=== PATIENT | female | born 1960 | race Caucasian/White ===

== ENCOUNTER → 2021-04-26 10:37 | Outpatient (BNVA) | payer OTHER, SELFPAY | PROVIDERS: Visit Provider Psychiatry & Neurology Neurology | DX: G43.709 Chronic migraine without aura, not intractable, without status migrainosus (principal); I10 Essential (primary) hypertension; D64.9 Anemia, unspecified; Z88.8 Allergy status to other drugs, medicaments and biological substances; F32.A Depression, unspecified | CPT/HCPCS: 64615; 99211; J0585 ==

== ENCOUNTER → 2021-08-01 08:07 | Outpatient (BNVA) | payer OTHER, SELFPAY | PROVIDERS: Visit Provider Psychiatry & Neurology Neurology | DX: G43.709 Chronic migraine without aura, not intractable, without status migrainosus (principal) | CPT/HCPCS: 64615; 99211; J0585 ==

== ENCOUNTER → 2021-11-24 09:44 | Outpatient (BNVA) | payer OTHER, SELFPAY | PROVIDERS: Visit Provider Psychiatry & Neurology Neurology | DX: G43.709 Chronic migraine without aura, not intractable, without status migrainosus (principal) | CPT/HCPCS: 64615; 99211; J0585 ==

== ENCOUNTER → 2022-03-02 08:25 | Outpatient (BNVA) | payer OTHER, SELFPAY | PROVIDERS: Visit Provider Psychiatry & Neurology Neurology | DX: G43.709 Chronic migraine without aura, not intractable, without status migrainosus (principal); I10 Essential (primary) hypertension | CPT/HCPCS: 64615; 99211; J0585 ==

== ENCOUNTER → 2022-06-12 11:21 | Outpatient (BNVA) | payer OTHER, SELFPAY | PROVIDERS: PCP Internal Medicine; Visit Provider Psychiatry & Neurology Neurology | DX: G43.709 Chronic migraine without aura, not intractable, without status migrainosus (principal) | CPT/HCPCS: 64615; 99211; J0585 ==

== ENCOUNTER 2022-09-27 11:30 | Outpatient (AMB) | payer OTHER, SELFPAY ==
--- NOTE | 2022-09-27 11:32 | MHC.OFFVIS ---
Intake Vital Signs 09/27/22 11:33 Height 5 ft 3 in Weight 192 lb 8 oz BMI 34.1 BP 120/82 Blood Pressure Location Rt brachial Position Sitting Intake Visit Reasons: Botox (B&B)-confirmed Intake Note: Patient presents for botox injection. Allergies prochlorperazine [From Compazine] Allergy (Severe, Verified 09/27/22 11:35) Shortness of Breath fluoxetine [From Prozac] Allergy (Mild, Verified 09/27/22 11:35) Nausea and Vomiting lithium Allergy (Mild, Verified 09/27/22 11:35) Unknown divalproex sodium [From Depakote] Allergy (Unknown, Verified 09/27/22 11:35) Unknown Medication List - Last Reconciled 09/27/22 by Ese Ray MD acetaminophen 500 mg PO Q6H PRN bupropion HCl (Wellbutrin XL) 300 mg PO QAM bupropion HCl (Wellbutrin SR) 150 mg PO Q12H cholecalciferol (vitamin D3) 50 mcg PO DAILY clonazepam (Klonopin) 0.5 mg PO BID escitalopram oxalate (Lexapro) 25 mg PO BEDTIME gabapentin 400 mg PO TID ibuprofen 0 mg PO lamotrigine (Lamictal) 100 mg PO BID magnesium 400 mg PO BEDTIME onabotulinumtoxinA (Botox) 200 units IM .every 3 months oxycodone 5 mg PO Q6H PRN sumatriptan succinate 100 mg PO Q2-4H PRN 30 days HPI HPI Comments History of Present Illness Details ? 62y/o female comes for treatment of her migraines with BOTOX. ??? Most frequent reported adverse reactions following injection of botox for chronic migraine include neck pain (9%), headache(5%), eyelid ptosis(4%), migraine(4%), muscular weakness(4%), musculuskeletal stiffness(4%), bronchitis(3%), injection site pain (3%), musculoskeletal pain(3%), myalgia(3%), facial paresis(2%), HTN(2%) and muscle spasms(2%) were discussed in detail. ??? Botulinum toxin typeA 200units Lot no [id number] expiration 03/2025 was diluted with 4 cc of normal saline in each vial. ??? Muscles injected- ??? Frontalis 4 sites ??? Procerus 1 site ??? Microstrategy Architect Developer- 2 sites ??? Temporalis- 8 sites ??? Occipitalis- 6 sites ??? Cervical paraspinals- 4 sites ??? Trapezius-10 units 6 sites zygomaticus major 5units each ??? 5 units each in 33 site ??? Total use- 195units ??? Discarded-5units PFSH Medical History Anemia Chronic migraine without aura Depression HTN (hypertension) Surgical History H/O: hysterectomy Hx of bilateral breast reduction surgery Hx of removal of cyst Family History Mother Cancer Father HTN (hypertension) Diabetes Social History Household Members: None Alcohol intake: never Patient Tobacco Use Status: Never used Tobacco Physical Exam Vital Signs: Last Vital Signs BP 120/82 09/27/22 11:33 BMI result Body Mass Index 34.1 Const General: cooperative and healthy appearing Orientation/consciousness: patient oriented x3 Neuro General: patient oriented x3, gait normal, tone normal and moves all extremities Cranial nerves: Yes CN's II-XII intact bilaterally Cognition (Neuro): normal cognition Office Procedures Botulinum toxin Injection 07287 - Migraine Procedure code (CPT) selection complete Office Meds onabotulinumtoxinA Performing Provider: Ese Ray MD Administered by: Ese Ray MD on 09/27/22 13:51 Dose Route Admin Location Lot Number Expiration Date [facility] Asbestos Removal Supervisor 200 unit subcut [id number] 03/28/25 3836-6063-32 ALLERGAN/BOTOX Comments: see hpi Assessment & Plan Assessment & Plan (1) Chronic migraine without aura: Code(s): G43.709 - Chronic migraine without aura, not intractable, without status migrainosus (2) Migraine with aura, intractable, without status migrainosus: Code(s): G43.119 - Migraine with aura, intractable, without status migrainosus Plan Patient tolerated the procedure well she will call with any side effects Orders: Orders AMB Botulinum toxin Injection Today G43.709 - Chronic migraine without aura, not intractable, without status migrainosus Coding Level of Care Code Est Pt Level 1 (61121) Diagnoses Chronic migraine without aura G43.709 Migraine with aura, intractable, without status migrainosus G43.119 CPT Codes Botox Injection - Botox 3: 95714 - Migraine ([id number])
[2022-09-27 11:33] VITALS: BP 120/82; BMI 34.1
== END 2022-09-27 12:02 | disposition home or self-care (01) ==
PROVIDERS: PCP Internal Medicine; Visit Provider Psychiatry & Neurology Neurology
DX: G43.709 Chronic migraine without aura, not intractable, without status migrainosus (principal); G43.119 Migraine with aura, intractable, without status migrainosus
CPT/HCPCS: 64615

== ENCOUNTER → 2022-09-27 11:30 | Outpatient (BNVA) | payer OTHER, SELFPAY | PROVIDERS: PCP Internal Medicine; Visit Provider Psychiatry & Neurology Neurology | DX: G43.709 Chronic migraine without aura, not intractable, without status migrainosus (principal); G43.119 Migraine with aura, intractable, without status migrainosus | CPT/HCPCS: 64615; 99211; J0585 ==

== ENCOUNTER 2023-01-03 08:57 | Outpatient (AMB) | payer OTHER, SELFPAY ==
--- NOTE | 2023-01-03 09:15 | MHC.OFFVIS ---
Intake Vital Signs 01/03/23 09:16 Height 5 ft 3 in Weight 198 lb 8 oz BMI 35.2 BP 140/78 H Blood Pressure Location Rt brachial Position Sitting Respiration 16 Pulse Source Pulse Oximeter Pulse Oximetry (%) 97 Oxygen Delivery Method Room Air Intake Visit Reasons: Botox (B&B)/Lvm Intake Note: Pt presents to the office for Botox injections. Corporate Communications Intern Required: No Allergies prochlorperazine [From Compazine] Allergy (Severe, Verified 01/03/23 09:15) Shortness of Breath fluoxetine [From Prozac] Allergy (Mild, Verified 01/03/23 09:15) Nausea and Vomiting lithium Allergy (Mild, Verified 01/03/23 09:15) Unknown divalproex sodium [From Depakote] Allergy (Unknown, Verified 01/03/23 09:15) Unknown Medication List - Last Reconciled 01/03/23 by Ese Ray MD acetaminophen 500 mg PO Q6H PRN bupropion HCl (Wellbutrin XL) 300 mg PO QAM bupropion HCl (Wellbutrin SR) 150 mg PO Q12H cholecalciferol (vitamin D3) 50 mcg PO DAILY clonazepam (Klonopin) 0.5 mg PO BID escitalopram oxalate (Lexapro) 25 mg PO BEDTIME gabapentin 400 mg PO TID ibuprofen 0 mg PO lamotrigine (Lamictal) 100 mg PO BID magnesium 400 mg PO BEDTIME onabotulinumtoxinA (Botox) 200 units IM .every 3 months oxycodone 5 mg PO Q6H PRN sumatriptan succinate 100 mg PO Q2-4H PRN 30 days HPI HPI Comments History of Present Illness Details ? 62y/o female comes for treatment of her migraines with BOTOX. ??? Most frequent reported adverse reactions following injection of botox for chronic migraine include neck pain (9%), headache(5%), eyelid ptosis(4%), migraine(4%), muscular weakness(4%), musculuskeletal stiffness(4%), bronchitis(3%), injection site pain (3%), musculoskeletal pain(3%), myalgia(3%), facial paresis(2%), HTN(2%) and muscle spasms(2%) were discussed in detail. ??? Botulinum toxin typeA 200units Lot no [id number] expiration 03/2025 was diluted with 4 cc of normal saline in each vial. ??? Muscles injected- ??? Frontalis 4 sites ??? Procerus 1 site ??? Research Executive- 2 sites ??? Temporalis- 8 sites ??? Occipitalis- 6 sites ??? Cervical paraspinals- 4 sites ??? Trapezius-10 units 6 sites zygomaticus major 5units each ??? 5 units each in 33 site ??? Total use- 195units ??? Discarded-5units [facility] Medical History Anemia Depression Chronic migraine without aura HTN (hypertension) Surgical History Hx of bilateral breast reduction surgery Hx of removal of cyst H/O: hysterectomy Family History Mother Cancer Father HTN (hypertension) Diabetes Social History Household Members: None Alcohol intake: never Patient Tobacco Use Status: Never used Tobacco Physical Exam Vital Signs: Last Vital Signs Resp 16 01/03/23 09:16 BP 140/78 H 01/03/23 09:16 Pulse Ox 97 01/03/23 09:16 Oxygen Delivery Method Room Air 01/03/23 09:16 BMI result Body Mass Index 35.2 Const General: cooperative and healthy appearing Orientation/consciousness: patient oriented x3 Neuro General: patient oriented x3, gait normal, tone normal and moves all extremities Cranial nerves: Yes CN's II-XII intact bilaterally Cognition (Neuro): normal cognition Office Procedures Botulinum toxin Injection 62431 - Migraine Procedure code (CPT) selection complete Office Meds onabotulinumtoxinA 200 unit solution for injection Performing Provider: Ese Ray MD Performing Location: [facility] [place] [facility] Administered by: Ese Ray MD on 01/03/23 09:54 Dose Route Admin Location Dispensed Lot Number Expiration Date [facility] Tray Packer 185 unit subcut 200 units [id number] 03/28/25 4414-2858-87 ALLERGAN/BOTOX Comments: see hpi Assessment & Plan Assessment & Plan (1) Chronic migraine without aura: Code(s): G43.709 - Chronic migraine without aura, not intractable, without status migrainosus (2) Migraine with aura, intractable, without status migrainosus: Code(s): G43.119 - Migraine with aura, intractable, without status migrainosus Plan Patient tolerated the procedure well she will call with any side effects Orders: Orders AMB Botulinum toxin Injection Today G43.709 - Chronic migraine without aura, not intractable, without status migrainosus Coding Level of Care Code Est Pt Level 1 (09768) Diagnoses Chronic migraine without aura G43.709 Migraine with aura, intractable, without status migrainosus G43.119 CPT Codes Botox Injection - Botox 3: 31454 - Migraine ([id number])
[2023-01-03 09:16] VITALS: BP 140/78; RESP 16; O2SAT 97; BMI 35.2
== END 2023-01-03 09:54 | disposition home or self-care (01) ==
PROVIDERS: PCP Internal Medicine; Visit Provider Psychiatry & Neurology Neurology
DX: G43.709 Chronic migraine without aura, not intractable, without status migrainosus (principal)
CPT/HCPCS: 64615

== ENCOUNTER → 2023-01-03 08:57 | Outpatient (BNVA) | payer OTHER, SELFPAY | PROVIDERS: PCP Internal Medicine; Visit Provider Psychiatry & Neurology Neurology | DX: G43.709 Chronic migraine without aura, not intractable, without status migrainosus (principal); G43.119 Migraine with aura, intractable, without status migrainosus | CPT/HCPCS: 64615; 99211; J0585 ==

== ENCOUNTER 2023-03-27 08:21 | Outpatient (REF) | payer OTHER, SELFPAY ==
[2023-03-27 08:41] LABS: MANUAL DIFF FLAG NO
[2023-03-27 08:59] LABS: Basophils Percent Auto 0.6 % (0-2); Eosinophils Absolute Auto 0.1 X10*3/uL (0.0-0.4); Hemoglobin 13.7 g/dl (12.0-16.0); Imm Gran Abs Auto 0.02 X10*3/uL (0.00-0.03); Imm Gran Pct Auto 0.3 % (0.0-0.4); Lymphocytes Absolute Auto 2.1 X10*3/uL (1.2-4.9); Mean Corpuscular HGB Conc 32.6 g/dl (31.0-35.0); Mean Corpuscular Hemoglobin 30.2 pg (27.0-33.0); Mean Corpuscular Volume 92.7 fL (80.0-98.0); Mean Platelet Volume 10.6 fL (9.4-12.3); Monocytes Absolute Auto 0.5 X10*3/uL (0.1-1.2); Monocytes Percent Auto 8.3 % (2-11); Neutrophils Absolute Auto 3.6 x10*3/uL (2.0-8.3); Neutrophils Percent Auto 55.8 % (45-73); Platelet Count 329 X10*3/uL (160-400); Red Blood Count 4.53 X10*6/uL (4.20-5.50); Red Cell Distribution Width 14.4 % (11.0-16.0); White Blood Count 6.4 X10*3/uL (4.8-10.8)
[2023-03-27 09:35] LABS: Estimated Average Glucose 108 mg/dL; Hemoglobin A1c % 5.4 % (<6.0)
[2023-03-27 10:03] LABS: Alanine Aminotransferase 32 U/L (0-31); Albumin Level 3.9 g/dL (3.5-5.0); Alkaline Phosphatase 116 U/L (39-117); Anion Gap 12 (12-20); Aspartate Amino Transferase 21 U/L (5-31); Bilirubin Total 0.4 mg/dL (0.0-1.0); Blood Urea Nitrogen 17 mg/dL (9-16); Calcium 9.3 mg/dL (8.4-10.2); Carbon Dioxide 28 mmol/L (22-29); Chloride 106 mmol/L (96-108); Cholesterol 270 mg/dL (<200); Estimated Glomerular Filt Rate 52; Glucose Fasting 110 mg/dL (60-99); HDL Cholesterol 48 mg/dL (>40); LDL Cholesterol Calculated 161 mg/dL (<100); Sodium 142 mmol/L (135-145); Total Protein 7.3 g/dL (6.5-8.0); Triglycerides 305 mg/dL (<150)
[2023-03-27 10:19] LABS: Free T4 (Free Thyroxine) 0.72 ng/dL (0.71-1.85); Thyroid Stimulating Hormone 2.55 uIU/mL (0.32-4.0); Vitamin D 25-OH Total 63.3 ng/mL (>30)
[2023-03-27 10:38] LABS: Vitamin B12 464 pg/mL (200-900)
== END 2023-03-27 08:22 | disposition home or self-care (01) ==
LOC: HO.LAB 08:21
PROVIDERS: PCP Internal Medicine; Visit Provider Psychiatry & Neurology Psychiatry
DX: F33.2 Major depressive disorder, recurrent severe without psychotic features (principal); F41.1 Generalized anxiety disorder
CPT/HCPCS: 36415; 80053; 80061; 82306; 82607; 83036; 84439; 84443; 85025

== ENCOUNTER → 2023-03-29 13:45 | Outpatient (BNV) | payer OTHER, SELFPAY | PROVIDERS: Visit Provider Psychiatry & Neurology Psychiatry | DX: F31.30 Bipolar disorder, current episode depressed, mild or moderate severity, unspecified (principal); F41.1 Generalized anxiety disorder | CPT/HCPCS: 90792; 99213 ==

== ENCOUNTER 2023-04-05 13:45 | Outpatient (RCR) | payer OTHER, SELFPAY ==
[2023-03-22 10:43] VITALS: BP 142/98; PULSE 68; TEMP 36.8
[2023-03-22 10:45] VITALS: BMI 32.9
--- NOTE | 2023-03-22 11:25 | PC.ADMIT ---
Patient is a 62 year old female who was referred to [facility] by crisis after talking to a therapist that was covering for her current therapist who has been on FMLA since January 2023. Patient stated she called crisis d/t increased depression and was having thoughts to shoot herself with a gun or hang herself. 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 She denied having any access to guns as guns are locked up at her brothers house. Patient denied SI at present. She stated, I got beyond that after I talked to Crisis . She stated her therapist is on FMLA and has been gone since the middle of January. She (her therapist) gave me the number to crisis and I used it . Patient stated, I'm trying to stay out of the hospital . Reports plans for the weekend include going over to her partner Arthur's house after program today, Saturday going over to her partners house all day, and Saturday having her friend Adolph over to watch the football game. She was given a copy of her safety plan if needed with the crisis numbers. Patient is alert and oriented x4. Calm and cooperative. Denied SI. She presented with anxious mood and affect. Medications reconciled with patient and patient's pharmacy. She stated she is taking medications as prescribed.
--- NOTE | 2023-03-22 21:48 | HO.PS.ADMBH ---
HPI Date of Service: 03/22/23 Chief Complaint: depression,SI Sources of Information: patient interviewed, chart reviewed and crisis/core team assessment reviewed HPI Narrative: Patient is a 62 year old female with history of Bipolar disorder, who was referred to PHP after presenting to Crisis with complaints of depression and wanting to kill myself . She reports that precipitant was because I lost my therapist . She said she was already struggling with her mood since the holidays which is usually a difficult time of the year for her, since losing her father last February. She shares that she was having thoughts of how to hang herself and says that she was talking to my (late) parents...I miss them. She says presently she is doing better, she is still depressed but is enthusiastic about starting the program and says that she generally benefits from therapeutic supports. She engages in a weekly depression group in the community at [facility]. She denies any current AH or VH, but reportedly has a history of hallucinations in the past. Past Psychiatric History: IP hospitalizations x3 including [facility] in 06/2021 PHP x1: at [facility] in 2019 No detox admissions Denies hx of suicide attempts or SIB Denies aggressive behavior Hx of EDB remotely PCP: Dr. Copeland Psych provider: Bambi Evans Therapist: currently on leave CURRENT MEDICATIONS: WEllbutrin XL 450 mg qAM gabapentin 400 mg QAM gabapentin 1000 mg QHS Lexapro 25 mg qd Latuda 40 mg qd Klonopin 0.5 mg TID Magnesium 400 mg qd Vitamin D3 2000 mg qd vitamins PMFSH Medical History (Updated 04/03/23 @ 23:07 by Emily Ramírez MD) Leaky heart valve Anemia Depression Chronic migraine without aura HTN (hypertension) Surgical History (Updated 03/22/23 @ 10:42 by Kenna Blackwood RN) History of cholecystectomy History of appendectomy Hx of bilateral breast reduction surgery Hx of removal of cyst H/O: hysterectomy Family History: Bipolar, addiction Social History: Lives alone , many years ago. No children, hx of stillborn child in 1997 Primary supports are her siblings, she is 2nd of 5 children. Mother in 2014, father in 2022 Graduated HS and attended college at [employer] for [employer], [employer] for Interview [employer] Substance History: Patient denies any history of alcohol or substance use Trauma History: Per assessment, reported trauma with loss of child (stillborn) in 1997. Loss of marriage after 44 years Diagnostics Vital Signs (24Hr): Vital Signs - 24 hr 03/22/23 10:43 Temperature 98.2 F Pulse Rate 68 Blood Pressure 142/98 H BMI result Body Mass Index 32.9 Meds/Allergies Meds Home Medications Medication Instructions Recorded Confirmed Type clonazepam 0.5 mg tablet (Klonopin) 0.5 mg PO BID 06/12/22 03/22/23 History magnesium 200 mg tablet 400 mg PO DAILY 06/12/22 03/22/23 History bupropion HCl 150 mg 24 hr tablet, 150 mg PO QAM 03/22/23 03/22/23 History extended release (Wellbutrin XL) bupropion HCl 300 mg 24 hr tablet, 300 mg PO QAM 03/22/23 03/22/23 History extended release (Wellbutrin XL) cholecalciferol (vitamin D3) 50 50 mcg PO DAILY 03/22/23 03/22/23 History mcg (2,000 unit) capsule (Vitamin D3) escitalopram oxalate 20 mg tablet 20 mg PO BEDTIME 03/22/23 03/22/23 History (Lexapro) escitalopram oxalate 5 mg tablet 5 mg PO DAILY 03/22/23 03/22/23 History (Lexapro) gabapentin 300 mg capsule 600 mg PO BEDTIME 03/22/23 03/22/23 History gabapentin 400 mg capsule 400 mg PO BID 03/22/23 03/22/23 History multivitamin 1 tab PO DAILY 03/22/23 03/22/23 History Allergies Allergies Allergy/AdvReac Type Severity Reaction Status Date / Time prochlorperazine Allergy Severe Shortness Verified 01/03/23 09:15 [From Compazine] of Breath fluoxetine [From Prozac] Allergy Mild Nausea and Verified 01/03/23 09:15 Vomiting lithium Allergy Mild Unknown Verified 01/03/23 09:15 divalproex sodium Allergy Unknown Unknown Verified 01/03/23 09:15 [From Depakote] peanut Allergy throat Verified 03/22/23 10:40 tightens seafood Allergy tongue Verified 03/22/23 10:40 tingles raisin AdvReac Migraine Uncoded 03/22/23 11:29 Mental Status Exam Mental Status Exam Narrative: Alert, oriented, in no acute distress. Calm, cooperative, engaged. No psychomotor agitation or neurovegetative retardation. Eye contact maintained. Mood anxious, depressed, affect variable.. Speech normal. Thought process linear, coherent. Thought content related to stressors, transient hopelessness and transient SI without suicidal intent or plan. Denies aggressive ideation or HI. No paranoia or delusional content elicited. No evidence of psychosis. Insight and judgment fair but adequate. Assessment & Plan Assessment & Plan (1) Bipolar affect, depressed: Status: Acute Code(s): F31.30 - Bipolar disorder, current episode depressed, mild or moderate severity, unspecified (2) Generalized anxiety disorder: Status: Acute Code(s): F41.1 - Generalized anxiety disorder Plan Admit to PHP continue with regular medications does not need any refills at this time will check routine lab work continue to monitor as per protocol Patient educated on: diagnosis and medication risk/benefits Informed Consent: understands Certification I certify that partial hospital treatment is medically necessary due to the symptoms and problems resulting from the patient's mental illness and the failure to treat the patient at the partial hospital level of care would likely result in the patient requiring inpatient psychiatric care which could not be prevented at a less intensive level of care. Time Spent With Patient Time: Total time managing care of this patient today __60__ minutes.
--- NOTE | 2023-03-28 15:05 | HO.PHP ---
Client's case has been opened and reviewed in treatment team.
[2023-03-29 09:35] VITALS: BP 144/80; PULSE 76
--- NOTE | 2023-03-29 23:58 | P.PNPSP_ITS ---
Subjective Subjective Date of Service: 03/29/23 Reason For Visit: depression,SI Interim History: Patient seen for follow-up. NO acute issues or complaints. She reports she is finally getting enough sleep. Mood is pretty good , depression improving, she has found groups helpful with managing anxiety and stressors. She finds the substance abuse groups do not pertain to her but says she pays attention to gain information in case I ever know someone who has these struggles . She indicates she came to the program to better manage her own emotional struggles. Has had SI in the past, and says she has experienced these kind of intrusive thoughts before but has not had any SI in the past 1.5 weeks. She says she has been making more efforts to stay busy and I'm active . Has been more energetic and motivated and has been attending to her household, cleaning and keeping up with responsibiltiies and self care. She has one more week in the program. She also looks forward to returning to her weekly depression group in the community. We reviewed her recent lab work, she is noted to have dyslipidemia. She has not been taking her statin but reports having an upcoming PCP appointment in 3 weeks and plan to discuss this with her PCP. I also notice her last BP in the system was 148/98, she is not on any anti- hypertensive medications, however her WB was recently increased and may be contributing to further elevations in BP. We will have her see the nurse today to recheck her blood pressure and may consider bumping up the Latuda so that Wellbutrin can be decreased. Medication Compliance: Yes Side effects from medications: No Attending Groups: Yes Review of Systems Acute medical concerns: No Mental Status Exam Mental Status Exam Narrative: Alert, oriented, in no acute distress. Calm, cooperative, engaged. No psychomotor agitation or neurovegetative retardation. Eye contact maintained. Mood less depressed and anxious, affect brighter, variable.. Speech normal. Thought process linear, coherent. Thought content related to stressors, denies hopelessness or SI or HI. No paranoia or delusional content elicited. No evidence of psychosis. Insight and judgment fair-good. Diagnostics Vital Signs (24Hr): Vital Signs - 24 hr 03/29/23 09:35 Pulse Rate 76 Blood Pressure 144/80 H BMI result Body Mass Index 32.9 Assessment & Plan Assessment & Plan (1) Major depressive disorder without psychotic features: Status: Acute Code(s): F32.9 - Major depressive disorder, single episode, unspecified (2) Generalized anxiety disorder: Status: Acute Code(s): F41.1 - Generalized anxiety disorder Plan will see RN to recheck VS if BP remains high we may consider bumping up Latuda to 60 mg/d and decreasing Wellbutrin XL to 300 mg/d otherwise continue current medication regime recent lab work findings reviewed with patient continue to monitor Patient educated on: diagnosis and medication risk/benefits Informed Consent: understands Reason for contiued partial hosp. stay Substantial Risk for: inability to function and med/psych decompensation Certification I certify that partial hospital treatment is medically necessary due to the symptoms and problems resulting from the patient's mental illness and the failure to treat the patient at the partial hospital level of care would likely result in the patient requiring inpatient psychiatric care which could not be prevented at a less intensive level of care. Total time managing care of this patient today __30__ minutes. Discharge Plan Discharge Attending provider: Emily Ramírez Medications: Continued gabapentin 400 mg capsule 400 mg PO BID gabapentin 300 mg capsule 600 mg PO BEDTIME escitalopram oxalate [Lexapro] 20 mg tablet 20 mg PO BEDTIME bupropion HCl [Wellbutrin XL] 300 mg tablet extended release 24 hr 300 mg PO QAM bupropion HCl [Wellbutrin XL] 150 mg tablet extended release 24 hr 150 mg PO QAM escitalopram oxalate [Lexapro] 5 mg tablet 5 mg PO DAILY lurasidone 40 mg tablet 40 mg PO QPM Patient Comments: Patient to take every evening with a meal. clonazepam [Klonopin] 0.5 mg tablet 0.5 mg PO BID No Action multivitamin [Daily Vitamin] Tablet 1 tab PO DAILY cholecalciferol (vitamin D3) [Vitamin D3] 50 mcg (2,000 unit) Capsule 50 mcg PO DAILY magnesium 200 mg tablet 400 mg PO DAILY
--- NOTE | 2023-04-02 20:51 | P.PNPSP_ITS ---
Subjective Subjective Date of Service: 04/02/23 Reason For Visit: depression,SI Interim History: Patient reports that she is feeling good . She is not as tired as she was last week. Sleep is improving and she is sleeping for the most part . She has enjoyed her time here, has found the program helpful. SHe is excited about some mandelas (coloring pages) that one of the other patient found in the group room and says she gets a lot of satisfaction doing art projects and other activities that help her manage stress. She feels she benefits from different treatment modalities. Art is particularly helpful intervention, her depression groups regularly gives them drawing or coloring exercises to work on during the week. SHe plans to also look into the Anxiety group that will be starting .up soon at [facility]. They can do up to 8 weeks at a time, before they need to take some time away to allow other folks to participate. We discuss her blood pressures which have been running borderline high she says since the dose of Wellbutrin was increased to 300 mg XL. She is agreeable to dropping the dose, but not back to 150 mg as she is concerned her depression will return. Will order Sr formulation and start at 50 mg. She denies any issues with mood swings, irritability, AH or VH or other symptoms of verenice or psychosis. Most recent episode was depressed. WIll continue Latuda and other medications at current doses. Medication Compliance: Yes Side effects from medications: Yes (as noted) Attending Groups: Yes Review of Systems Acute medical concerns: No Diagnostics Vital Signs (24Hr): BMI result Body Mass Index 32.9 Assessment & Plan Assessment & Plan (1) Bipolar affect, depressed: Status: Acute Code(s): F31.30 - Bipolar disorder, current episode depressed, mild or moderate severity, unspecified (2) Generalized anxiety disorder: Status: Acute Code(s): F41.1 - Generalized anxiety disorder Plan lower dose of Wellbutrin xl from 450 mg to 300 mg start Wellbutrin sr 50 mg qAM continue lurasidone 40 mg continue other medications continue to monitor Patient educated on: diagnosis and medication risk/benefits Informed Consent: understands Reason for contiued partial hosp. stay Substantial Risk for: inability to function and med/psych decompensation Certification I certify that partial hospital treatment is medically necessary due to the symptoms and problems resulting from the patient's mental illness and the failure to treat the patient at the partial hospital level of care would likely result in the patient requiring inpatient psychiatric care which could not be prevented at a less intensive level of care. Total time managing care of this patient today _30___ minutes. Discharge Plan Discharge Attending provider: Emily Ramírez Medications: New bupropion HCl [Wellbutrin SR] 100 mg tablet sustained-release 12 hr 50 mg PO QAM 30 Days Qty: 15 0RF Continued gabapentin 400 mg capsule 400 mg PO BID gabapentin 300 mg capsule 600 mg PO BEDTIME escitalopram oxalate [Lexapro] 20 mg tablet 20 mg PO BEDTIME bupropion HCl [Wellbutrin XL] 300 mg tablet extended release 24 hr 300 mg PO QAM bupropion HCl [Wellbutrin XL] 150 mg tablet extended release 24 hr 150 mg PO QAM escitalopram oxalate [Lexapro] 5 mg tablet 5 mg PO DAILY lurasidone 40 mg tablet 40 mg PO QPM 30 Days Qty: 30 0RF clonazepam [Klonopin] 0.5 mg tablet 0.5 mg PO BID No Action multivitamin [Daily Vitamin] Tablet 1 tab PO DAILY cholecalciferol (vitamin D3) [Vitamin D3] 50 mcg (2,000 unit) Capsule 50 mcg PO DAILY magnesium 200 mg tablet 400 mg PO DAILY
--- NOTE | 2023-04-04 07:30 | HO.PHP ---
Mary spoke to PHP admin, Diandra, and informed her that she won't be in attendance to program today due to having a migraine and feeling as though she is coming down with a cold. Mary stated that she is safe and continue to stay in contact with her sister throughout the day. Mary will be in attendance to program tomorrow.
--- NOTE | 2023-04-05 15:25 | P.PNPSP_ITS ---
Subjective Subjective Date of Service: 04/05/23 Reason For Visit: depression,SI Interim History: Patient seen for follow-up, anticipating discharge at the end of program today.? Reports no acute issues or concerns. Medication compliant, medications well- tolerated. Denies any adverse effects.?She reports her weekend is full with plans. She was unable to fill the Wellbutrin SR but would still like the 50 mg dose in order to lower her dose from 450 mg XL as her blood pressure has been elevated since her outpatient provider increased the dose. She had been at 300 mg XL in the past and feels that would be too low. Will resend over 50 mg IR of Wellbutrin to pharmacy (originally preferred SR formulation). If she has any trouble tolerating the dose, will plan to return dose to 450 mg and follow up with outpatient provider in 2 weeks. Mood is good .? Denies any hopelessness or SI. Denies thoughts of harming self or others at this time. Denies any aggressive ideation or HI. Denies any paranoia or AH or VH. Sleep, appetite, energy stable. Denies any alcohol or substance use, plans to use, or cravings. Medication Compliance: Yes Side effects from medications: No Attending Groups: Yes Review of Systems Acute medical concerns: No Mental Status Exam Mental Status Exam Narrative: Alert, oriented, in no acute distress. Calm, cooperative, engaged. Eye contact maintained. Mood good, affect appropriate. Speech normal. Thought process linear, coherent. Thought content related to stressors, denies any helplessness, hopelessness or SI.? No aggressive ideation or HI. No paranoia or delusional content elicited. No evidence of psychosis. Insight and judgment impaired. Diagnostics Vital Signs (24Hr): BMI result Body Mass Index 32.9 Assessment & Plan Assessment & Plan (1) Bipolar affect, depressed: Status: Acute Code(s): F31.30 - Bipolar disorder, current episode depressed, mild or moderate severity, unspecified (2) Generalized anxiety disorder: Status: Acute Code(s): F41.1 - Generalized anxiety disorder Plan [facility]Ischarge from [facility] continue with plan to lower Wellbutrin to 350 mg (300 mg XL/50 mg IR) if not tolerated will return to 450 mg XL continue other regular medications will defer further medication management to outpatient provider Refills sent to pharmacy Patient educated on: diagnosis and medication risk/benefits Informed Consent: understands Reason for contiued partial hosp. stay Substantial Risk for: stable for discharge Certification I certify that partial hospital treatment is medically necessary due to the symptoms and problems resulting from the patient's mental illness and the failure to treat the patient at the partial hospital level of care would likely result in the patient requiring inpatient psychiatric care which could not be prevented at a less intensive level of care. Total time managing care of this patient today _30___ minutes. Discharge Plan Discharge Attending provider: Emily Ramírez Additional Instructions: Mary has an OP therapy appointment on April 09, 2023 at 4 PM through [facility]. Medications: New bupropion HCl 100 mg tablet 50 - 100 mg PO QAM Qty: 14 0RF Continued gabapentin 400 mg capsule 400 mg PO BID gabapentin 300 mg capsule 600 mg PO BEDTIME escitalopram oxalate [Lexapro] 20 mg tablet 20 mg PO BEDTIME bupropion HCl [Wellbutrin XL] 300 mg tablet extended release 24 hr 300 mg PO QAM bupropion HCl [Wellbutrin XL] 150 mg tablet extended release 24 hr 150 mg PO QAM escitalopram oxalate [Lexapro] 5 mg tablet 5 mg PO DAILY lurasidone 40 mg tablet 40 mg PO QPM 30 Days Qty: 30 0RF clonazepam [Klonopin] 0.5 mg tablet 0.5 mg PO BID No Action multivitamin [Daily Vitamin] Tablet 1 tab PO DAILY cholecalciferol (vitamin D3) [Vitamin D3] 50 mcg (2,000 unit) Capsule 50 mcg PO DAILY magnesium 200 mg tablet 400 mg PO DAILY Stand Alone Forms: Patient Portal Discharge page Patient Education: Bipolar Disorder (DC)
== END 2023-04-05 23:59 | disposition home or self-care (01) ==
LOC: HO.PHPA 13:45
PROVIDERS: Visit Provider Psychiatry & Neurology Psychiatry
DX: F31.30 Bipolar disorder, current episode depressed, mild or moderate severity, unspecified (principal); F41.1 Generalized anxiety disorder; Z79.899 Other long term (current) drug therapy
CPT/HCPCS: 90791; 90853

== ENCOUNTER 2023-04-26 08:25 | Outpatient (AMB) | payer OTHER, SELFPAY ==
--- NOTE | 2023-04-26 08:35 | MHC.OFFVIS ---
Intake Vital Signs 04/26/23 08:36 Respiration 17 Pulse 70 Pulse Source Pulse Oximeter Pulse Oximetry (%) 95 Oxygen Delivery Method Room Air Intake Visit Reasons: Botox (B&B)-Confirmed Intake Note: Pt presents to the office for Botox injections. Rn Gastroenterology Required: No Allergies prochlorperazine [From Compazine] Allergy (Severe, Verified 04/26/23 08:35) Shortness of Breath fluoxetine [From Prozac] Allergy (Mild, Verified 04/26/23 08:35) Nausea and Vomiting lithium Allergy (Mild, Verified 04/26/23 08:35) Unknown divalproex sodium [From Depakote] Allergy (Unknown, Verified 04/26/23 08:35) Unknown peanut Allergy (Verified 04/26/23 08:35) throat tightens seafood Allergy (Verified 04/26/23 08:35) tongue tingles raisin Adverse Reaction (Uncoded 04/26/23 08:35) Migraine Medication List - Last Reconciled 04/26/23 by Ese Ray MD bupropion HCl (Wellbutrin XL) 300 mg PO QAM bupropion HCl 50 - 100 mg (0.5 - 1 x 100 mg) PO QAM cholecalciferol (vitamin D3) (Vitamin D3) 50 mcg PO DAILY clonazepam (Klonopin) 0.5 mg PO BID escitalopram oxalate (Lexapro) 20 mg PO BEDTIME escitalopram oxalate (Lexapro) 5 mg PO DAILY gabapentin 600 mg PO BEDTIME gabapentin 400 mg PO BID lurasidone 40 mg PO QPM 30 days magnesium 400 mg PO DAILY multivitamin 1 tab PO DAILY HPI HPI Comments History of Present Illness Details ? 62y/o female comes for treatment of her migraines with BOTOX. she was admitted at [facility] for suicidal ideation. .How many migraine days prior to botox-20 How long do the migraines last-1-2 days Intensity of migraine- 12/04 ER visits related to [id number] Effectiveness of botox from last two treatment(s) How many migraine days since receiving treatment: 3-4 per month Change? in intensity of migraine?decreased Change in frequency of migraine?decreased Change in use of acute medication for migraine?decreased Change in quality of life?improved ER visits related to migraine?none Have at least three months elapsed since last treatment (Last botox date - frequency of injections)01/17 ??? Most frequent reported adverse reactions following injection of botox for chronic migraine include neck pain (9%), headache(5%), eyelid ptosis(4%), migraine(4%), muscular weakness(4%), musculuskeletal stiffness(4%), bronchitis(3%), injection site pain (3%), musculoskeletal pain(3%), myalgia(3%), facial paresis(2%), HTN(2%) and muscle spasms(2%) were discussed in detail. ??? Botulinum toxin typeA 200units Lot no [id number] expiration 07/2025 was diluted with 4 cc of normal saline in each vial. ??? Muscles injected- ??? Frontalis 4 sites ??? Procerus 1 site ??? Health Care Manager- 2 sites ??? Temporalis- 8 sites ??? Occipitalis- 6 sites ??? Cervical paraspinals- 4 sites ??? Trapezius-10 units 6 sites zygomaticus major 5units each ??? 5 units each in 33 site ??? Total use- 195units ??? Discarded-5units [facility] Medical History Sebaceous cyst Leaky heart valve Anemia Depression Chronic migraine without aura HTN (hypertension) Surgical History History of cholecystectomy History of appendectomy Hx of bilateral breast reduction surgery Hx of removal of cyst H/O: hysterectomy Family History Mother Cancer Father HTN (hypertension) Diabetes Social History Household Members: None Alcohol intake: never Patient Tobacco Use Status: Never used Tobacco Physical Exam Vital Signs: Last Vital Signs Pulse 70 04/26/23 08:36 Resp 17 04/26/23 08:36 Pulse Ox 95 04/26/23 08:36 Oxygen Delivery Method Room Air 04/26/23 08:36 Const General: cooperative and healthy appearing Orientation/consciousness: patient oriented x3 Neuro General: patient oriented x3, gait normal, tone normal and moves all extremities Cranial nerves: Yes CN's II-XII intact bilaterally Cognition (Neuro): normal cognition Office Procedures Botulinum toxin Injection 97312 - Migraine Procedure code (CPT) selection complete Office Meds onabotulinumtoxinA 200 unit solution for injection Performing Provider: Ese Ray MD [place] [facility] [place] [facility] Administered by: Ese Ray MD on 04/26/23 09:34 Dose Route Admin Location Dispensed Lot Number Expiration Date [facility] Outpatient Case Manager 195 unit subcut 200 units [id number] 07/26/25 7913-5710-99 ALLERGAN/BOTOX Comments: see HPI Assessment & Plan Assessment & Plan (1) Chronic migraine without aura: Code(s): G43.709 - Chronic migraine without aura, not intractable, without status migrainosus (2) Migraine with aura, intractable, without status migrainosus: Code(s): G43.119 - Migraine with aura, intractable, without status migrainosus Plan Patient tolerated the procedure well she will call with any side effects Orders: Orders AMB Botulinum toxin Injection Today G43.709 - Chronic migraine without aura, not intractable, without status migrainosus Coding Level of Care Code Est Pt Level 1 (09103) Diagnoses Chronic migraine without aura G43.709 Migraine with aura, intractable, without status migrainosus G43.119 CPT Codes Botox Injection - Botox 3: 30542 - Migraine ([id number])
[2023-04-26 08:36] VITALS: PULSE 70; RESP 17; O2SAT 95
== END 2023-04-26 09:23 | disposition home or self-care (01) ==
PROVIDERS: PCP Internal Medicine; Visit Provider Psychiatry & Neurology Neurology
DX: G43.119 Migraine with aura, intractable, without status migrainosus (principal)
CPT/HCPCS: 64615

== ENCOUNTER → 2023-04-26 08:25 | Outpatient (BNVA) | payer OTHER, SELFPAY | PROVIDERS: PCP Internal Medicine; Visit Provider Psychiatry & Neurology Neurology | DX: G43.709 Chronic migraine without aura, not intractable, without status migrainosus (principal); G43.119 Migraine with aura, intractable, without status migrainosus | CPT/HCPCS: 64615; 99211; J0585 ==

== ENCOUNTER 2023-08-01 08:40 | Outpatient (AMB) | payer OTHER, SELFPAY ==
--- NOTE | 2023-08-01 08:47 | MHC.OFFVIS ---
Vital Signs 08/01/23 08:48 Height 5 ft 3 in Weight 198 lb 2 oz BMI 35.1 BP 142/78 H Blood Pressure Location Rt brachial Position Sitting Respiration 17 Pulse 75 Pulse Source Pulse Oximeter Pulse Oximetry (%) 95 Oxygen Delivery Method Room Air Intake Visit Reasons: Botox (B&B) - Confirmed Intake Note: Pt presents to the office for Botox injections. Time Study Observer Required: No Allergies prochlorperazine [From Compazine] Allergy (Severe, Verified 08/01/23 08:47) Shortness of Breath fluoxetine [From Prozac] Allergy (Mild, Verified 08/01/23 08:47) Nausea and Vomiting lithium Allergy (Mild, Verified 08/01/23 08:47) Unknown divalproex sodium [From Depakote] Allergy (Unknown, Verified 08/01/23 08:47) Unknown peanut Allergy (Verified 08/01/23 08:47) throat tightens seafood Allergy (Verified 08/01/23 08:47) tongue tingles raisin Adverse Reaction (Uncoded 08/01/23 08:47) Migraine Medication List - Last Reconciled 08/01/23 by Ese Ray MD bupropion HCl 50 - 100 mg (0.5 - 1 x 100 mg) PO QAM bupropion HCl XL (Wellbutrin XL) 300 mg PO QAM cholecalciferol (vitamin D3) (Vitamin D3) 50 mcg PO DAILY clonazepam (Klonopin) 0.5 mg PO BID escitalopram oxalate (Lexapro) 20 mg PO BEDTIME escitalopram oxalate (Lexapro) 5 mg PO DAILY gabapentin 600 mg PO BEDTIME gabapentin 400 mg PO BID lurasidone 40 mg PO QPM 30 days magnesium 400 mg PO DAILY multivitamin 1 tab PO DAILY sumatriptan succinate take 1 tab at onset of headache; if no relief, may repeat 1 tab after at least 2 hrs; max = 2 tabs/24 hrs PO HPI Comments Details: ? 62y/o female comes for treatment of her migraines with BOTOX. .How many migraine days prior to botox-20 How long do the migraines last-1-2 days Intensity of migraine- 12/04 ER visits related to [id number] Effectiveness of botox from last two treatment(s) How many migraine days since receiving treatment: 3-4 per month Change? in intensity of migraine?decreased Change in frequency of migraine?decreased Change in use of acute medication for migraine?decreased Change in quality of life?improved ER visits related to migraine?none Have at least three months elapsed since last treatment -yes ??? Most frequent reported adverse reactions following injection of botox for chronic migraine include neck pain (9%), headache(5%), eyelid ptosis(4%), migraine(4%), muscular weakness(4%), musculuskeletal stiffness(4%), bronchitis(3%), injection site pain (3%), musculoskeletal pain(3%), myalgia(3%), facial paresis(2%), HTN(2%) and muscle spasms(2%) were discussed in detail. ??? Botulinum toxin typeA 200units Lot no [id number] expiration 07/2025 was diluted with 4 cc of normal saline in each vial. ??? Muscles injected- ??? Frontalis 4 sites ??? Procerus 1 site ??? Employment Interviewer- 2 sites ??? Temporalis- 8 sites ??? Occipitalis- 6 sites ??? Cervical paraspinals- 4 sites ??? Trapezius-10 units 6 sites zygomaticus major 5units each ??? 5 units each in 33 site ??? Total use- 195units ??? Discarded-5units [facility] Medical History Sebaceous cyst Leaky heart valve Anemia Depression Chronic migraine without aura HTN (hypertension) Surgical History History of cholecystectomy History of appendectomy Hx of bilateral breast reduction surgery Hx of removal of cyst H/O: hysterectomy Family History Mother Cancer Father HTN (hypertension) Diabetes Social History Household Members: None Alcohol intake: never Patient Tobacco Use Status: Never used Tobacco Physical Exam Const General: cooperative and healthy appearing Orientation/consciousness: patient oriented x3 Neuro General: patient oriented x3, gait normal, tone normal and moves all extremities Cranial nerves: Yes CN's II-XII intact bilaterally Cognition (Neuro): normal cognition Office Procedures Botulinum toxin Injection 96895 - Migraine Procedure code (CPT) selection complete Office Meds onabotulinumtoxinA 200 unit solution for injection Performing Provider: Ese Ray MD [place] [facility] [place] [facility] Administered by: Ese Ray MD on 08/01/23 09:19 Dose Route Admin Location Dispensed Lot Number Expiration Date [facility] Plant Maintenance Technician 195 unit subcut 200 units [id number] 07/26/25 9284-6141-90 ALLERGAN/BOTOX Comments: see hpi Assessment & Plan Assessment & Plan (1) Chronic migraine without aura: Code(s): G43.709 - Chronic migraine without aura, not intractable, without status migrainosus Category: Medical (2) Migraine with aura, intractable, without status migrainosus: Code(s): G43.119 - Migraine with aura, intractable, without status migrainosus Category: Medical Plan Patient tolerated the procedure well she will call with any side effects Orders: Orders AMB Botulinum toxin Injection Today G43.709 - Chronic migraine without aura, not intractable, without status migrainosus Medications: New onabotulinumtoxinA 200 units subcut ONCE 1 ea 0RF migraine G43.709 - Chronic migraine without aura, not intractable, without status migrainosus Coding Level of Care Code Est Pt Level 1 (36736) Diagnoses Chronic migraine without aura G43.709 Migraine with aura, intractable, without status migrainosus G43.119 CPT Codes Botox Injection - Botox 3: 12125 - Migraine ([id number])
[2023-08-01 08:48] VITALS: BP 142/78; PULSE 75; RESP 17; O2SAT 95; BMI 35.1
== END 2023-08-01 09:11 | disposition home or self-care (01) ==
PROVIDERS: PCP Internal Medicine; Visit Provider Psychiatry & Neurology Neurology
DX: G43.E19 Chronic migraine with aura, intractable, without status migrainosus (principal)
CPT/HCPCS: 64615

== ENCOUNTER → 2023-08-01 08:40 | Outpatient (BNVA) | payer OTHER, SELFPAY | PROVIDERS: PCP Internal Medicine; Visit Provider Psychiatry & Neurology Neurology | DX: G43.E09 Chronic migraine with aura, not intractable, without status migrainosus (principal) | CPT/HCPCS: 64615; 99211; J0585 ==

== ENCOUNTER 2023-11-04 09:26 | Outpatient (AMB) | payer OTHER, SELFPAY ==
--- NOTE | 2023-11-04 09:34 | A.OFFVIS_ITS ---
Vital Signs 11/04/23 09:35 Height 5 ft 3 in Weight 199 lb 2 oz BMI 35.3 BP 140/80 H Blood Pressure Location Rt brachial Position Sitting Respiration 17 Pulse 70 Pulse Source Pulse Oximeter Pulse Oximetry (%) 95 Oxygen Delivery Method Room Air Intake Visit Reasons: Botox Intake Note: Pt presents for Botox injections for chronic migraines. Process Improvement Analyst Required: No Allergies prochlorperazine [From Compazine] Allergy (Severe, Verified 11/04/23 09:34) Shortness of Breath fluoxetine [From Prozac] Allergy (Mild, Verified 11/04/23 09:34) Nausea and Vomiting lithium Allergy (Mild, Verified 11/04/23 09:34) Unknown divalproex sodium [From Depakote] Allergy (Unknown, Verified 11/04/23 09:34) Unknown peanut Allergy (Verified 11/04/23 09:34) throat tightens seafood Allergy (Verified 11/04/23 09:34) tongue tingles raisin Adverse Reaction (Uncoded 11/04/23 09:34) Migraine Medication List - Last Reconciled 11/04/23 by Ese Ray MD bupropion HCl 50 - 100 mg (0.5 - 1 x 100 mg) PO QAM bupropion HCl XL (Wellbutrin XL) 300 mg PO QAM cholecalciferol (vitamin D3) (Vitamin D3) 50 mcg PO DAILY clonazepam (Klonopin) 0.5 mg PO BID escitalopram oxalate (Lexapro) 20 mg PO BEDTIME escitalopram oxalate (Lexapro) 5 mg PO DAILY gabapentin 600 mg PO BEDTIME gabapentin 400 mg PO BID lurasidone 40 mg PO QPM 30 days magnesium 400 mg PO DAILY multivitamin 1 tab PO DAILY sumatriptan succinate take 1 tab at onset of headache; if no relief, may repeat 1 tab after at least 2 hrs; max = 2 tabs/24 hrs PO HPI Comments Details: ? 63y/o female comes for treatment of her migraines with BOTOX. .How many migraine days prior to botox-20 How long do the migraines last-1-2 days Intensity of migraine- 12/04 ER visits related to [id number] Effectiveness of botox from last two treatment(s) How many migraine days since receiving treatment: 3-4 per month Change? in intensity of migraine?decreased Change in frequency of migraine?decreased Change in use of acute medication for migraine?decreased Change in quality of life?improved ER visits related to migraine?none Have at least three months elapsed since last treatment -yes ??? Most frequent reported adverse reactions following injection of botox for chronic migraine include neck pain (9%), headache(5%), eyelid ptosis(4%), migraine(4%), muscular weakness(4%), musculuskeletal stiffness(4%), bronchitis(3%), injection site pain (3%), musculoskeletal pain(3%), myalgia(3%), facial paresis(2%), HTN(2%) and muscle spasms(2%) were discussed in detail. ??? Botulinum toxin typeA 200units Lot no [id number] expiration 01/2026 was diluted with 4 cc of normal saline in each vial. ??? Muscles injected- ??? Frontalis 4 sites ??? Procerus 1 site ??? Cafe Site Attendant- 2 sites ??? Temporalis- 8 sites ??? Occipitalis- 6 sites ??? Cervical paraspinals- 4 sites ??? Trapezius-10 units 6 sites zygomaticus major 5units each ??? 5 units each in 33 site ??? Total use- 195units ??? Discarded-5units ON LICENSE OF [facility] Medical History (Updated 11/04/23 @ 09:59 by Ese Ray MD) Chronic migraine without aura, intractable, without status migrainosus Sebaceous cyst Leaky heart valve Anemia Depression Chronic migraine without aura HTN (hypertension) Surgical History History of cholecystectomy History of appendectomy Hx of bilateral breast reduction surgery Hx of removal of cyst H/O: hysterectomy Family History Mother Cancer Father HTN (hypertension) Diabetes Social History Household Members: None Alcohol intake: never Patient Tobacco Use Status: Never used Tobacco Physical Exam Vital Signs: Last Vital Signs Pulse 70 11/04/23 09:35 Resp 17 11/04/23 09:35 BP 140/80 H 11/04/23 09:35 Pulse Ox 95 11/04/23 09:35 Oxygen Delivery Method Room Air 11/04/23 09:35 BMI result Body Mass Index 35.3 Const General: cooperative and healthy appearing Orientation/consciousness: patient oriented x3 Neuro General: patient oriented x3, gait normal, tone normal and moves all extremities Cranial nerves: Yes CN's II-XII intact bilaterally Cognition (Neuro): normal cognition Office Procedures Botulinum toxin Injection 30313 - Migraine Procedure code (CPT) selection complete Office Meds onabotulinumtoxinA 200 unit solution for injection Performing Provider: Ese Ray MD Performing Location: [facility] [place] [facility] Administered by: Ese Ray MD on 11/04/23 10:01 Dose Route Admin Location Dispensed Lot Number Expiration Date [facility] Building Trades Teacher 195 unit subcut 200 units [id number] 01/25/26 2998-4281-28 ALLERGAN/BOTOX Comments: see HPI Assessment & Plan Assessment & Plan (1) Chronic migraine without aura, intractable, without status migrainosus: Code(s): G43.719 - Chronic migraine without aura, intractable, without status migrainosus Category: Medical (2) Migraine with aura, intractable, without status migrainosus: Code(s): G43.119 - Migraine with aura, intractable, without status migrainosus Category: Medical Plan Patient tolerated the procedure well she will call with any side effects Orders: Orders AMB Botulinum toxin Injection Today G43.719 - Chronic migraine without aura, intractable, without status migrainosus Medications: New onabotulinumtoxinA 200 units subcut ONCE 1 ea 0RF migraine G43.719 - Chronic migraine without aura, intractable, without status migrainosus Coding Level of Care Code Est Pt Level 1 (19757) Diagnoses Chronic migraine without aura, intractable, without status migrainosus G43.719 Migraine with aura, intractable, without status migrainosus G43.119 CPT Codes Botox Injection - Botox 3: 16406 - Migraine ([id number])
[2023-11-04 09:35] VITALS: BP 140/80; PULSE 70; RESP 17; O2SAT 95; BMI 35.3
== END 2023-11-04 09:58 | disposition home or self-care (01) ==
PROVIDERS: PCP Internal Medicine; Visit Provider Psychiatry & Neurology Neurology
DX: G43.719 Chronic migraine without aura, intractable, without status migrainosus (principal)
CPT/HCPCS: 64615

== ENCOUNTER → 2023-11-04 09:26 | Outpatient (BNVA) | payer OTHER, SELFPAY | PROVIDERS: PCP Internal Medicine; Visit Provider Psychiatry & Neurology Neurology | DX: G43.E19 Chronic migraine with aura, intractable, without status migrainosus (principal) | CPT/HCPCS: 64615; 99211; J0585 ==

== ENCOUNTER 2024-03-10 08:43 | Outpatient (AMB) | payer MEDICAID, SELFPAY ==
[2024-03-10 08:56] VITALS: BMI 35.2
--- NOTE | 2024-03-10 08:56 | A.OFFVIS_ITS ---
Vital Signs 03/10/24 08:56 Height 5 ft 3 in Weight 199 lb BMI 35.2 Intake Visit Reasons: Botox Intake Note: Patient presents for botox injection Allergies prochlorperazine [From Compazine] Allergy (Severe, Verified 11/04/23 09:34) Shortness of Breath fluoxetine [From Prozac] Allergy (Mild, Verified 11/04/23 09:34) Nausea and Vomiting lithium Allergy (Mild, Verified 11/04/23 09:34) Unknown divalproex sodium [From Depakote] Allergy (Unknown, Verified 11/04/23 09:34) Unknown peanut Allergy (Verified 11/04/23 09:34) throat tightens seafood Allergy (Verified 11/04/23 09:34) tongue tingles raisin Adverse Reaction (Uncoded 11/04/23 09:34) Migraine Medication List - Last Reconciled 03/10/24 by Ese Ray MD bupropion HCl 50 - 100 mg (0.5 - 1 x 100 mg) PO QAM bupropion HCl XL (Wellbutrin XL) 300 mg PO QAM cholecalciferol (vitamin D3) (Vitamin D3) 50 mcg PO DAILY clonazepam (Klonopin) 0.5 mg PO BID escitalopram oxalate (Lexapro) 20 mg PO BEDTIME escitalopram oxalate (Lexapro) 5 mg PO DAILY gabapentin 600 mg PO BEDTIME gabapentin 400 mg PO BID lurasidone 40 mg PO QPM 30 days magnesium 400 mg PO DAILY multivitamin 1 tab PO DAILY sumatriptan succinate take 1 tab at onset of headache; if no relief, may repeat 1 tab after at least 2 hrs; max = 2 tabs/24 hrs PO HPI Comments Details: ? 63y/o female comes for treatment of her migraines with BOTOX. .How many migraine days prior to botox-20 How long do the migraines last-1-2 days Intensity of migraine- 10/10 ER visits related to eddquzhg-0-3 Effectiveness of botox from last two treatment(s) How many migraine days since receiving treatment: 3-4 per month Change? in intensity of migraine?decreased Change in frequency of migraine?decreased Change in use of acute medication for migraine?decreased Change in quality of life?improved ER visits related to migraine?none Have at least three months elapsed since last treatment -yes ??? Most frequent reported adverse reactions following injection of botox for chronic migraine include neck pain (9%), headache(5%), eyelid ptosis(4%), migraine(4%), muscular weakness(4%), musculuskeletal stiffness(4%), bronchitis(3%), injection site pain (3%), musculoskeletal pain(3%), myalgia(3%), facial paresis(2%), HTN(2%) and muscle spasms(2%) were discussed in detail. ??? Botulinum toxin typeA 200units Lot no [id number] expiration 04/2026 was diluted with 4 cc of normal saline in each vial. ??? Muscles injected- ??? Frontalis 4 sites ??? Procerus 1 site ??? Molded Goods Spot Picker- 2 sites ??? Temporalis- 8 sites ??? Occipitalis- 6 sites ??? Cervical paraspinals- 4 sites ??? Trapezius-10 units 6 sites zygomaticus major 5units each ??? 5 units each in 33 site ??? Total use- 195units ??? Discarded-5units [facility] Medical History Chronic migraine without aura, intractable, without status migrainosus Sebaceous cyst Leaky heart valve Anemia Depression Chronic migraine without aura HTN (hypertension) Surgical History History of cholecystectomy History of appendectomy Hx of bilateral breast reduction surgery Hx of removal of cyst H/O: hysterectomy Family History Mother Cancer Father HTN (hypertension) Diabetes Social History Household Members: None Alcohol intake: never Patient Tobacco Use Status: Never used Tobacco Physical Exam Vital Signs: BMI result Body Mass Index 35.2 Const General: cooperative and healthy appearing Orientation/consciousness: patient oriented x3 Neuro General: patient oriented x3, gait normal, tone normal and moves all extremities Cranial nerves: Yes CN's II-XII intact bilaterally Cognition (Neuro): normal cognition Office Procedures Botulinum toxin Injection 45987 - Migraine Procedure code (CPT) selection complete Office Meds onabotulinumtoxinA 200 unit solution for injection Performing Provider: Ese Ray MD Performing Location: [facility] Administered by: Ese Ray MD on 03/10/24 09:27 Dose Route Admin Location Dispensed Lot Number Expiration Date NDC Vice President Digital Strategist 195 unit IM 200 units [id number] 04/25/26 9123-0384-91 ALLERGAN/BOTOX Comments: see hpi Assessment & Plan Assessment & Plan (1) Chronic migraine without aura, intractable, without status migrainosus: Code(s): G43.719 - Chronic migraine without aura, intractable, without status migrainosus Category: Medical (2) Migraine with aura, intractable, without status migrainosus: Code(s): G43.119 - Migraine with aura, intractable, without status migrainosus Category: Medical Plan Patient tolerated the procedure well she will call with any side effects Orders: Orders AMB Botulinum toxin Injection Today G43.719 - Chronic migraine without aura, intractable, without status migrainosus Medications: New onabotulinumtoxinA 200 units IM ONCE 1 ea 0RF migraine G43.719 - Chronic migraine without aura, intractable, without status migrainosus Coding Level of Care Code Est Pt Level 1 (58014) Diagnoses Chronic migraine without aura, intractable, without status migrainosus G43.719 Migraine with aura, intractable, without status migrainosus G43.119 CPT Codes Botox Injection - Botox 3: 56680 - Migraine ([id number])
== END 2024-03-10 09:19 | disposition home or self-care (01) ==
PROVIDERS: PCP Internal Medicine; Visit Provider Psychiatry & Neurology Neurology
DX: G43.719 Chronic migraine without aura, intractable, without status migrainosus (principal)
CPT/HCPCS: 64615

== ENCOUNTER → 2024-03-10 08:43 | Outpatient (BNVA) | payer MEDICAID, SELFPAY | PROVIDERS: PCP Internal Medicine; Visit Provider Psychiatry & Neurology Neurology | DX: G43.719 Chronic migraine without aura, intractable, without status migrainosus (principal); G43.119 Migraine with aura, intractable, without status migrainosus | CPT/HCPCS: 64615; 99211; J0585 ==

== ENCOUNTER → 2024-06-09 10:13 | Outpatient (BNVA) | payer MEDICARE, MEDICAID, SELFPAY | PROVIDERS: PCP Internal Medicine; Visit Provider Surgery | DX: G43.719 Chronic migraine without aura, intractable, without status migrainosus (principal); G43.119 Migraine with aura, intractable, without status migrainosus | CPT/HCPCS: 64615; 99211; J0585 ==

== ENCOUNTER 2024-06-09 13:49 | Outpatient (AMB) | payer MEDICARE, MEDICAID, SELFPAY ==
--- NOTE | 2024-06-09 13:53 | A.OFFVIS_ITS ---
Intake Visit Reasons: Botox Intake Note: Patient presents for botox injection. pharmacy supplied Allergies prochlorperazine [From Compazine] Allergy (Severe, Verified 06/09/24 13:55) Shortness of Breath fluoxetine [From Prozac] Allergy (Mild, Verified 06/09/24 13:55) Nausea and Vomiting lithium Allergy (Mild, Verified 06/09/24 13:55) Unknown divalproex sodium [From Depakote] Allergy (Unknown, Verified 06/09/24 13:55) Unknown peanut Allergy (Verified 06/09/24 13:55) throat tightens seafood Allergy (Verified 06/09/24 13:55) tongue tingles NUTS Allergy (Mild, Uncoded 06/09/24 13:55) Unknown seafood Allergy (Mild, Uncoded 06/09/24 13:55) Unknown raisin Adverse Reaction (Uncoded 06/09/24 13:55) Migraine Medication List - Last Reconciled 06/09/24 by Ese Ray MD bupropion HCl XL (Wellbutrin XL) 300 mg PO QAM bupropion HCl XL 150 mg PO QAM cholecalciferol (vitamin D3) (Vitamin D3) 50 mcg PO DAILY clonazepam (Klonopin) 0.5 mg PO BID escitalopram oxalate (Lexapro) 20 mg PO BEDTIME escitalopram oxalate (Lexapro) 5 mg PO DAILY gabapentin 600 mg PO BEDTIME gabapentin 400 mg PO BID lurasidone 40 mg PO QPM 30 days magnesium chloride (Mag-Delay) 64 mg PO QPM multivitamin 1 tab PO DAILY sumatriptan succinate take 1 tab at onset of headache; if no relief, may repeat 1 tab after at least 2 hrs; max = 2 tabs/24 hrs PO HPI Comments Details: ? 63y/o female comes for treatment of her migraines with BOTOX. .How many migraine days prior to botox-20 How long do the migraines last-1-2 days Intensity of migraine- 12/04 ER visits related to aobdvygj-8-7 Effectiveness of botox from last two treatment(s) How many migraine days since receiving treatment: 3-4 per month Change? in intensity of migraine?decreased Change in frequency of migraine?decreased Change in use of acute medication for migraine?decreased Change in quality of life?improved ER visits related to migraine?none Have at least three months elapsed since last treatment -yes ??? Most frequent reported adverse reactions following injection of botox for chronic migraine include neck pain (9%), headache(5%), eyelid ptosis(4%), migraine(4%), muscular weakness(4%), musculuskeletal stiffness(4%), bronchitis(3%), injection site pain (3%), musculoskeletal pain(3%), myalgia(3%), facial paresis(2%), HTN(2%) and muscle spasms(2%) were discussed in detail. ??? Botulinum toxin typeA 200units Lot no [id number] expiration 05/2026 was dilu karyn with 4 cc of normal saline in each vial. ??? Muscles injected- ??? Frontalis 4 sites ??? Procerus 1 site ??? Brick Or Block Maker- 2 sites ??? Temporalis- 8 sites ??? Occipitalis- 6 sites ??? Cervical paraspinals- 4 sites ??? Trapezius-10 units 6 sites zygomaticus major 5units each ??? 5 units each in 33 site ??? Total use- 195units ??? Discarded-5units [facility] Medical History Chronic migraine without aura, intractable, without status migrainosus Sebaceous cyst Leaky heart valve Anemia Depression Chronic migraine without aura HTN (hypertension) Surgical History History of cholecystectomy History of appendectomy Hx of bilateral breast reduction surgery Hx of removal of cyst H/O: hysterectomy Family History Mother Cancer Father HTN (hypertension) Diabetes Paternal Uncle Depression Sister Bipolar 1 disorder Social History Household Members: None Alcohol intake: never Patient Tobacco Use Status: Never used Tobacco Physical Exam Const General: cooperative and healthy appearing Orientation/consciousness: patient oriented x3 Neuro General: patient oriented x3, gait normal, tone normal and moves all extremities Cranial nerves: Yes CN's II-XII intact bilaterally Cognition (Neuro): normal cognition Office Procedures Botulinum toxin Injection 89163 - Migraine Procedure code (CPT) selection complete Office Meds onabotulinumtoxinA 200 unit solution for injection Performing Provider: Ese Ray MD Performing Location: [facility] Administered by: Ese Ray MD on 06/09/24 15:04 Dose Route Admin Location Dispensed Lot Number Expiration Date NDC Earthmoving Plant Operator 195 unit subcut 200 units [id number] ALLERGAN/BOTOX Comments: see HPI Assessment & Plan Assessment & Plan (1) Chronic migraine without aura, intractable, without status migrainosus: Code(s): G43.719 - Chronic migraine without aura, intractable, without status migrainosus Category: Medical (2) Migraine with aura, intractable, without status migrainosus: Code(s): G43.119 - Migraine with aura, intractable, without status migrainosus Category: Medical Plan Patient tolerated the procedure well she will call with any side effects Orders: Orders AMB Botulinum toxin Injection Today G43.719 - Chronic migraine without aura, intractable, without status migrainosus Medications: New onabotulinumtoxinA 200 units subcut ONCE 1 ea 0RF migraine G43.719 - Chronic migraine without aura, intractable, without status migrainosus Coding Level of Care Code Est Pt Level 1 (04968) Diagnoses Chronic migraine without aura, intractable, without status migrainosus G43.719 Migraine with aura, intractable, without status migrainosus G43.119 CPT Codes Botox Injection - Botox 3: 10540 - Migraine ([id number])
--- OUTSIDE RECORDS SUMMARY | 2024-06-09 17:01 | XMS_ITS | Clinical Summary ---
Author Organization [facility] ity Address [address] [place] [address] Care Team Providers Care Lpn Rn Hospice Name Role Phone Michael Oneill MD Primary Care Provider Social History Tobacco Use Types Packs/Day Years Used Date Smoking Tobacco: Never Assessed Comments Unknown Sex and Gender Information Value Date Recorded Sex Assigned at Not on file Legal Sex Female 3:28 PM EST Gender Identity Not on file Sexual Orientation Not on file Plan of Treatment Health Maintenance Due Date Last Done Comments Breast Cancer Screening 1960 DTaP,Tdap,and Td Vaccines (1 - Tdap) 1977 Cervical Cancer Screening: P ap Smear 09/22/1979 Pneumococcal Vaccine: 50+ Ye ars (1 of 1 - PCV) 2008 Zoster Vaccines (1 of 2) 2008 Colorectal Cancer Screening: Colonoscopy 01/24/2022 Depression Screening 01/24/2022 Hepatitis C Screening 01/24/2022 Osteoporosis Screening (Bone Density Screening) 01/24/2022 Social Influencers of Health Screening 01/24/2022 Falls Risk Assessment 09/22/2023 COVID-19 Vaccine ( - 2023-2 5 season) 2023 Influenza Vaccine (Season Ended) 2024 RSV Immunization Adult Patie nts (1 - 1-dose 75+ series) 2033 HIB Vaccines Aged Out No longer eligi ble based on patient's age to complete this topic HPV Vaccines Aged Out No longer eligi ble based on patient's age to complete this topic Hepatitis A Vaccines Aged Out No long er eligible based on patient's age to complete this topic Hepatitis B Vaccines Aged Out No long er eligible based on patient's age to complete this topic IPV Vaccines Aged Out No longer eligi ble based on patient's age to complete this topic MMR Vaccines Aged Out No longer eligi ble based on patient's age to complete this topic Meningococcal ACWY Vaccine Aged Out N o longer eligible based on patient's age to complete this topic Meningococcal B Vaccine Aged Out No l onger eligible based on patient's age to complete this topic Pneumococcal Vaccine: Pediat rics (0 to 5 Years) and At-Risk Patients (6 to 64 Years) Aged Out No longer eligible b ased on patient's age to complete this topic RSV Immunization Patients Un richard 20 months Aged Out No longer eligible b ased on patient's age to complete this topic Varicella Vaccines Aged Out No longer eligible based on patient's age to complete this topic Care Teams Lpn Rn Hospice Relationship Specialty Start Date End Date Michael Oneill MD [address] [place] [address] [phone] PCP - General Internal Medicine 08/15/17
== END 2024-06-09 14:09 | disposition home or self-care (01) ==
LOC: HO.HSMS 13:49
PROVIDERS: PCP Internal Medicine; Visit Provider Psychiatry & Neurology Neurology
DX: G43.719 Chronic migraine without aura, intractable, without status migrainosus (principal)
CPT/HCPCS: 64615

== ENCOUNTER 2024-06-18 08:11 | Outpatient (AMB) | payer MEDICARE, MEDICAID, SELFPAY ==
--- OUTSIDE RECORDS SUMMARY | 2024-06-18 08:25 | XMS_ITS | Clinical Summary ---
Author Organization [facility] ity Address [address] [place] [address] Care Team Providers Care Linderman Operator Name Role Phone Michael Oneill MD Primary [...] age to complete this topic Care Teams Linderman Operator Relationship Specialty Start Date End Date Michael Oneill MD [address] [place] [address] [phone] PCP - General Internal Medicine 08/15/17
--- NOTE | 2024-06-18 09:04 | MHC.OFFVISWM ---
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 33.8 *SEE COMMENTS* Allergies prochlorperazine [From Compazine] Allergy (Severe, Verified 06/18/24 09:04) Shortness of Breath fluoxetine [From Prozac] Allergy (Mild, Verified 06/18/24 09:04) Nausea and Vomiting lithium Allergy (Mild, Verified 06/18/24 09:04) Unknown divalproex sodium [From Depakote] Allergy (Unknown, Verified 06/18/24 09:04) Unknown peanut Allergy (Verified 06/18/24 09:04) throat tightens seafood Allergy (Verified 06/18/24 09:04) tongue tingles NUTS Allergy (Mild, Uncoded 06/18/24 09:04) Unknown seafood Allergy (Mild, Uncoded 06/18/24 09:04) Unknown raisin Adverse Reaction (Uncoded 06/18/24 09:04) Migraine Medication List - Last Reconciled 06/18/24 by Hao Echeverria MD bupropion HCl XL (Wellbutrin XL) 300 mg PO QAM bupropion HCl XL 150 mg PO QAM cholecalciferol (vitamin D3) (Vitamin D3) 50 mcg PO DAILY clonazepam (Klonopin) 0.5 mg PO BID escitalopram oxalate (Lexapro) 20 mg PO BEDTIME escitalopram oxalate (Lexapro) 5 mg PO DAILY gabapentin 600 mg PO BEDTIME gabapentin 400 mg PO BID lurasidone 40 mg PO QPM 30 days magnesium chloride (Mag-Delay) 64 mg PO QPM multivitamin 1 tab PO DAILY sumatriptan succinate take 1 tab at onset of headache; if no relief, may repeat 1 tab after at least 2 hrs; max = 2 tabs/24 hrs PO HPI HPI 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 BMI 33.8 *SEE COMMENTS*: Details: Start time: 8.40am, End time: 9.30am ?I spent 45 minutes speaking with the patient on the phone plus an additional 5 minutes reviewing and updating records for a total of 50 minutes HPI Comments Details: Previous weight loss efforts: self diet and exercise last 6 months and lost 18lbs Wakes 7am, Sleeps: 11pm Breakfast: half days of the week 8.30am (toast) Lunch: 1pm (salad) Dinner: 6pm (chicken with potatoes, pasta with meatballs, burger) Snacks: 10am (candy or apples), occasionally at 3pm (same) Exercise: none, [facility] to [facility] (treadmill and bike available) Beverages: Coffee: none, tea: none, soda: regular coke (3 cans/day), juice: Cranberry juice, ETOH: none PFSH Medical History (Updated 06/18/24 @ 09:38 by Hao Echeverria MD) BMI 33.0-33.9,adult Chronic migraine without aura, intractable, without status migrainosus Sebaceous cyst Leaky heart valve Anemia Depression Chronic migraine without aura HTN (hypertension) Surgical History History of cholecystectomy History of appendectomy Hx of bilateral breast reduction surgery Hx of removal of cyst H/O: hysterectomy Family History Mother Cancer Father HTN (hypertension) Diabetes Paternal Uncle Depression Sister Bipolar 1 disorder Social History Household Members: None Alcohol intake: never Patient Tobacco Use Status: Never used Tobacco Telehealth Telehealth Telehealth Platform: Telephone Location of provider rendering services: practice address Location of patient: address on file Patient Identification confirmed using: Name, : Yes Telehealth method: voice only Patient verbally consented to treatment: Yes Patient verbally consented to billing insurance company: Yes Patient informed of any privacy concerns related to visit: Yes Minutes spent on Phone/Video with Pt.: 50 Assessment & Plan Assessment & Plan (1) Obesity: Code(s): E66.9 - Obesity, unspecified Category: Medical Qualifiers: Obesity type: due to excess calories Obesity classification: adult class 1 (BMI 30 - 34.9) Serious obesity comorbidity presence: without serious comorbidity Body mass index: BMI 33.0-33.9 Qualified Code(s): E66.811 - Obesity, class 1; E66.09 - Other obesity due to excess calories; Z68.33 - Body mass index [BMI] 33.0-33.9, adult Plan: 1. We discussed in detail the available therapeutic options: 1) our lifestyle intervention program that has an average weight loss of 10% in 3 months.? 2) Weight loss medications. 3) We also discussed about the lap sleeve gastrectomy. I emphasized the importance of close follow-up, adherence to instructions and good communication. The surgery does not replace the need to change your lifestlyle which is the cause of the obesity problem. The surgery provides the motivation to try again to change your lifestyle, it reduces the appetite and make the transition to a better lifestyle easier and doubles the amount of weight you would lose compared to doing the lifestyle change without the surgery. You will need to be on a liquid diet with protein shakes for 2 weeks before surgery to maximize weight loss and boost your nutritional status to recover better from surgery and also for the first two weeks after surgery to let the stomach heal before we introduce other foods. After the first 2 weeks we will introduce protein bars and soft foods like scrambled eggs, cottage cheese and yogurt and after the 6th week will introduce meat, fish and cooked vegetables in small amounts. Over time you should be able to eat everything in small amounts. Side effects like nausea, vomiting, heartburn or abdominal pain are not common in the practice unless you are not following in the practice. This operation requires lifetime commitment to following in our practice and communication with me. You will much less weight and experience side effects if you don?t communicate or not following in the practice. Complications are rare and in our practice is about 1/10 of the national average. The patient will consider these options and get back to me with her decision how to proceed.
[2024-06-18 09:35] VITALS: BMI 33.7
== END 2024-06-18 09:42 | disposition home or self-care (01) ==
LOC: HO.HBS 08:11
PROVIDERS: PCP Internal Medicine; Visit Provider Surgery
DX: E66.09 Other obesity due to excess calories (principal); E66.811 Obesity, class 1; Z68.33 Body mass index [BMI] 33.0-33.9, adult
CPT/HCPCS: 99204

== ENCOUNTER → 2024-06-18 08:11 | Outpatient (BNVA) | payer MEDICARE, MEDICAID, SELFPAY | PROVIDERS: PCP Internal Medicine; Visit Provider Surgery ==

== ENCOUNTER 2024-07-02 11:38 | Outpatient (REF) | payer MEDICARE, MEDICAID, SELFPAY ==
--- NOTE | ~2024-07-02 | XR_ITS ---
EXAMINATION: XR CHEST CLINICAL INFORMATION: E66.811 - Obesity, class 1 COMPARISON: None available. TECHNIQUE: 2 views of the chest were obtained. FINDINGS: No consolidation, pleural effusion or pneumothorax. Cardiomediastinal silhouette size is normal. 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 Mild multilevel thoracic and upper lumbar spondylosis. Mild S-shaped curvature of the thoracic spine. Vascular clips in the right upper quadrant abdomen prior cholecystectomy procedure. Degenerative changes in the acromioclavicular joint. Patient's large body habitus/obesity. XR/XR chest 2V IMPRESSION: No acute airspace disease. Electronically signed by: James Choi MD 07/02/2024 12:22 PM EDT
[2024-07-02 11:50] LABS: MANUAL DIFF FLAG NO
--- NOTE | 2024-07-02 11:51 | ECG_ITS ---
Test Reason : OBESITY Blood Pressure : */* mmHG Vent. Rate : 67 BPM Atrial Rate : 67 BPM P-R Int : 166 ms QRS Dur : 140 ms QT Int : 460 ms P-R-T Axes : -2 39 -1 degrees QTcB Int : 486 ms Normal sinus rhythm Right bundle branch block Abnormal ECG No previous ECGs available Referred By: Hao Echeverria Electronically Signed By: IGOR STAHL
[2024-07-02 12:10] LABS: Basophils Percent Auto 0.5 % (0-2); Eosinophils Absolute Auto 0.1 X10*3/uL (0.0-0.4); Eosinophils Percent Auto 1.8 % (0-4); Hematocrit 41.5 % (37.0-47.0); Imm Gran Abs Auto 0.01 X10*3/uL (0.00-0.03); Imm Gran Pct Auto 0.2 % (0.0-0.4); Lymphocytes Absolute Auto 1.9 X10*3/uL (1.2-4.9); Lymphocytes Percent Auto 30.5 % (20-40); Mean Corpuscular HGB Conc 33.7 g/dl (31.0-35.0); Mean Corpuscular Volume 88.9 fL (80.0-98.0); Mean Platelet Volume 10.1 fL (9.4-12.3); Monocytes Absolute Auto 0.5 X10*3/uL (0.1-1.2); Monocytes Percent Auto 8.4 % (2-11); Neutrophils Absolute Auto 3.6 x10*3/uL (2.0-8.3); Neutrophils Percent Auto 58.6 % (45-73); Platelet Count 285 X10*3/uL (160-400); Red Blood Count 4.67 X10*6/uL (4.20-5.50); Red Cell Distribution Width 15.4 % (11.0-16.0); White Blood Count 6.2 X10*3/uL (4.8-10.8)
[2024-07-02 12:30] LABS: Estimated Average Glucose 114 mg/dL; Hemoglobin A1C 139.5471 umol/L; Hemoglobin A1c % 5.6 % (<6.0); Total Hemoglobin (HGBA1C) 3659.3008 umol/L
[2024-07-02 13:10] LABS: Alanine Aminotransferase 48 U/L (0-31); Albumin Level 4.2 g/dL (3.5-5.0); Alkaline Phosphatase 109 U/L (39-117); Anion Gap 14 (12-20); Aspartate Amino Transferase 29 U/L (5-31); Bilirubin Total 0.5 mg/dL (0.0-1.0); Blood Urea Nitrogen 17 mg/dL (9-16); C Reactive Protein 0.68 mg/dL (< or = 0.50); Calcium 9.4 mg/dL (8.4-10.2); Carbon Dioxide 29 mmol/L (22-29); Chloride 107 mmol/L (96-108); Cholesterol 288 mg/dL (<200); Estimated Glomerular Filt Rate > 60; Glucose Random 100 mg/dL (60-115); HDL Cholesterol 54 mg/dL (>40); Iron 69 mcg/dL (30-160); LDL Cholesterol Calculated 190 mg/dL (<100); Percent Iron Saturation 22 % (15-50); Potassium 4.1 mmol/L (3.3-5.1); Sodium 146 mmol/L (135-145); Total Iron Binding Capacity 309 mcg/dL (228-428); Total Protein 7.3 g/dL (6.5-8.0); Triglycerides 223 mg/dL (<150); Unsaturated Iron Binding 240 ug/dL
--- OUTSIDE RECORDS SUMMARY | 2024-07-02 13:12 | XMS_ITS | Clinical Summary ---
Author Organization [facility] ity Address [address] [place] [address] Care Team Providers Care Chiropractic Physician Name Role Phone Michael Oneill MD Primary [...] age to complete this topic Care Teams Chiropractic Physician Relationship Specialty Start Date End Date Michael Oneill MD [address] [place] [address] [phone] PCP - General Internal Medicine 08/15/17
[2024-07-02 13:27] LABS: Ferritin 52 ng/mL (10-250); TSH reflex Free T4 2.14 uIU/mL (0.32-4.0); Vitamin D 25-OH Total 70.1 ng/mL (>30)
[2024-07-02 13:30] LABS: Folate 12.4 ng/mL (> or = 4.0); Vitamin B12 314 pg/mL (200-900)
[2024-07-02 13:35] LABS: Insulin 15 uU/mL (2-29)
[2024-07-05 19:09] LABS: Zinc 76 mcg/dL (60-130)
[2024-07-07 02:05] LABS: Vitamin A 68 mcg/dL (38-98)
[2024-07-09 06:28] LABS: Vitamin B1 19 nmol/L (8-30)
== END 2024-07-02 11:39 | disposition home or self-care (01) ==
LOC: HO.LAB 11:38
PROVIDERS: PCP Internal Medicine; Visit Provider Surgery
DX: E66.811 Obesity, class 1 (principal); I10 Essential (primary) hypertension; I45.10 Unspecified right bundle-branch block; Z68.33 Body mass index [BMI] 33.0-33.9, adult; Z90.49 Acquired absence of other specified parts of digestive tract
CPT/HCPCS: 36415; 71046; 80053; 80061; 82306; 82607; 82728; 82746; 83036; 83525; 83540; 84425; 84443; 84590; 84630; 85025; 86140; 93005

== ENCOUNTER → 2024-07-02 11:51 | Outpatient (BNV) | payer MEDICARE, MEDICAID, SELFPAY | PROVIDERS: PCP Internal Medicine; Visit Provider Internal Medicine | DX: I45.10 Unspecified right bundle-branch block (principal) | CPT/HCPCS: 93010 ==

== ENCOUNTER → 2024-07-02 11:59 | Outpatient (BNV) | payer MEDICARE, MEDICAID, SELFPAY | PROVIDERS: PCP Internal Medicine; Visit Provider Radiology Diagnostic Radiology | DX: E66.811 Obesity, class 1 (principal) | CPT/HCPCS: 71046 ==

== ENCOUNTER 2024-07-24 11:21 | Outpatient (AMB) | payer MEDICARE, MEDICAID, SELFPAY ==
--- NOTE | 2024-07-24 11:05 | MHC.WMTHER ---
Intake Intake Visit Reasons: TV BH Intake Allergies prochlorperazine [From Compazine] Allergy (Severe, Verified 06/18/24 09:04) Shortness of Breath fluoxetine [From Prozac] Allergy (Mild, Verified 06/18/24 09:04) Nausea and Vomiting lithium Allergy (Mild, Verified 06/18/24 09:04) Unknown divalproex sodium [From Depakote] Allergy (Unknown, Verified 06/18/24 09:04) Unknown peanut Allergy (Verified 06/18/24 09:04) throat tightens seafood Allergy (Verified 06/18/24 09:04) tongue tingles NUTS Allergy (Mild, Uncoded 06/18/24 09:04) Unknown seafood Allergy (Mild, Uncoded 06/18/24 09:04) Unknown raisin Adverse Reaction (Uncoded 06/18/24 09:04) Migraine [facility] Medical History (Updated 06/18/24 @ 09:38 by Hao Echeverria MD) BMI 33.0-33.9,adult Chronic migraine without aura, intractable, without status migrainosus Sebaceous cyst Leaky heart valve Anemia Depression Chronic migraine without aura HTN (hypertension) Surgical History History of cholecystectomy History of appendectomy Hx of bilateral breast reduction surgery Hx of removal of cyst H/O: hysterectomy Family History Mother Cancer Father HTN (hypertension) Diabetes Paternal Uncle Depression Sister Bipolar 1 disorder Social History Household Members: None Alcohol intake: never Patient Tobacco Use Status: Never used Tobacco Behavioral Health Assessment Weight Management Therapy Therapy Notes Details The patient is a 63-year-old female presenting for an initial behavioral health assessment as part of the surgical weight loss program. She was referred to the program by a friend who previously underwent weight loss surgery. The patient is motivated to pursue bariatric surgery to improve her overall health and maintain an active lifestyle. Presenting Concerns Referral Source WMP-Provider. Reason for referral Completion of behavioral health assessment as part of process for weight-loss surgery. Precipitating Event Obesity. Living Situation Current Living Situation Rent At risk of losing current housing? Yes Satisfied with current living situation? Yes Comments PT lives alone. Food/Weight/Diet History/Relationship with weight 1996 struggles with an eating disorder. Social History Family history and relationship Pt is 12 years ago, with no children. PT has 4 siblings, parents are . Parental/Familial biologics specialist obligations None. Developmental history and status None reported. Currently WNL. Social support Boyfriend and a close friend. Community support Therapist. Islam/Spirituality Confucianist. Cultural/Ethnic information . Legal Involvement and History Current or historical involvement with the legal system? None. Education Highest grade completed Associates degree. Preferred learning style Auditory, Verbal, Written, Learn by doing and Visual Currently enrolled in educational program? No Interested in further educational program? 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 She is a volunteer for [employer]. Employment Employment Status Retired (3 years ago. ) Wants help to find employment? No Meaningful activities swimming, crafts, helping people, swinging. Financial Situation Describe current financial situation Comfortable and Occasional struggle Financial assistance? Food [place] Service Service? No Mental Health and Addiction Treatment Current/Past substance abuse? No Comments Alcohol: None Cigarettes/Tobacco: None Vaping: None Cannabis/Edibles: none. Current/Past addictive behavior concerns? No Psychiatric history PT attends outpatient services at [facility] in [place], she has a therapist, and they meet every 2 weeks and meet monthly with the prescriber. PT has been diagnosed with major depression and anxiety. Current meds: Bupropion 150mg 1 in the morning. Bupropion 300mg 1 in the morning. Clonazepam 0.5mg, 2 at day daily Escitalopram 25mg at bedtime Gabapentin 400mg 1 in the morning, 1 in the middle of the day Gabapentin 600mg 1 at bedtime. Lurasidone 40mg 1 in the evening. PT reports she has been hospitalized for mental health in the past, last time about 3 years ago, due to SI and a plan. Also states she has recurrent depressive episodes, has a history of panic attacks, and anxiety. Currently is stable, she does uses behavioral activation plan and is active in multiple activities outside which helps for Sx management. Medications Does the patient use complimentary health approaches? Yes (attends chiropractor every month for back issues. ) Questionnaires PHQ-9 Over the last 2 weeks, how often have you been bothered by any of the following problems? 1. Little interest or pleasure in doing things: several days 2. Feeling down, depressed, or hopeless: more than half the days 3. Trouble falling or staying asleep, or sleeping too much: more than half the days 4. Feeling tired or having little energy: more than half the days 5. Poor appetite or overeating: nearly every day 6. Feeling bad about yourself - or that you are a failure or have let yourself or your family down: several days 7. Trouble concentrating on things, such as reading the newspaper or watching television: several days 8. Moving or speaking so slowly that other people could have noticed. Or the opposite - being so fidgety or restless that you have been moving around a lot more than usual: several days 9. Thoughts that you would be better off or of hurting yourself in some way: not at all Total score: 13 Depression Screening Interpretation: Positive (From new PT pack- New one will be administered. ) Depression Screening Done: Yes Source: Developed by Drs. Danny Mendoza, Jessica Conrad, Fausto Cuevas and colleagues, with an educational martina from [employer]. Assessment & Plan Assessment & Plan (1) Major depressive disorder without psychotic features: Code(s): F32.9 - Major depressive disorder, single episode, unspecified (2) Generalized anxiety disorder: Code(s): F41.1 - Generalized anxiety disorder (3) Pre-bariatric surgery psychological evaluation: Code(s): Z71.89 - Other specified counseling Plan Patient was not cleared today as the assessment remains incomplete. She will return in 2?3 weeks to continue the evaluation. At the next appointment, we will review the BES and administer a new PHQ-9. Next appointment: 08/10 at 2:00 PM - Telehealth Telehealth Telehealth [facility] Location of provider rendering services: other Location of patient: address on file Patient Identification confirmed using: Name, : Yes Telehealth method: video Patient verbally consented to treatment: Yes Patient verbally consented to billing insurance company: Yes Patient informed of any privacy concerns related to visit: Yes Minutes spent on Phone/Video with Pt.: 55 Coding Level of Care Code New Pt Tele Psy Diag Eval (60511) Patient Type New Diagnoses Major depressive disorder without psychotic features F32.9 Generalized anxiety disorder F41.1 Pre-bariatric surgery psychological evaluation Z71.89 Time Spent (min) 55
--- OUTSIDE RECORDS SUMMARY | 2024-07-24 12:16 | XMS_ITS | Clinical Summary ---
Author Organization [facility] ity Address [address] [place] [id number] Care Team Providers Care Test Consultant Name Role Phone Michael Oneill MD Primary [...] 2008 Zoster Vaccines (1 of 2) 2008 COVID-19 Vaccine ( - 2023-2 5 season) [...] age to complete this topic Care Teams Test Consultant Relationship Specialty Start Date End Date Michael Oneill MD [address] [place] [phone] PCP - General Internal Medicine 08/15/17
== END 2024-07-24 11:50 | disposition home or self-care (01) ==
LOC: HO.HBST 11:21
PROVIDERS: PCP Internal Medicine; Visit Provider Counselor Mental Health
DX: F32.9 Major depressive disorder, single episode, unspecified (principal); F41.1 Generalized anxiety disorder; Z71.89 Other specified counseling
CPT/HCPCS: 90791

== ENCOUNTER → 2024-07-24 11:21 | Outpatient (BNVA) | payer MEDICARE, MEDICAID, SELFPAY | PROVIDERS: PCP Internal Medicine; Visit Provider Counselor Mental Health ==

== ENCOUNTER 2024-08-10 14:12 | Outpatient (AMB) | payer MEDICARE, MEDICAID, SELFPAY ==
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
--- OUTSIDE RECORDS SUMMARY | 2024-08-10 15:55 | XMS_ITS | Clinical Summary ---
Author Organization [facility] ity Address [address] [place] [address] Care Team Providers Care Bellhop Name Role Phone Michael Oneill MD Primary [...] age to complete this topic Care Teams Bellhop Relationship Specialty Start Date End Date Michael Oneill MD [address] [place] [phone] PCP - General Internal Medicine 08/15/17
== END 2024-08-10 15:06 | disposition home or self-care (01) ==
LOC: HO.HBST 14:12
PROVIDERS: PCP Internal Medicine; Visit Provider Counselor Mental Health
DX: F32.1 Major depressive disorder, single episode, moderate (principal); F41.1 Generalized anxiety disorder; Z71.89 Other specified counseling
CPT/HCPCS: 90837

== ENCOUNTER → 2024-08-10 14:12 | Outpatient (BNVA) | payer MEDICARE, MEDICAID, SELFPAY | PROVIDERS: PCP Internal Medicine; Visit Provider Counselor Mental Health | DX: Z13.89 Encounter for screening for other disorder (principal) ==

== ENCOUNTER 2024-08-12 09:07 | Outpatient (REF) | payer MEDICARE, MEDICAID, SELFPAY ==
--- NOTE | ~2024-08-12 | US_ITS ---
EXAMINATION: US COMPLETE ABDOMEN WITH LIVER ELASTOGRAPHY CLINICAL INFORMATION: Obesity, class I COMPARISON: None available. TECHNIQUE: Real-time imaging of the abdominal viscera. Noninvasive ultrasound liver fibrosis assessment is performed using Nga ElastPQ point quantification shear wave elastography (pSWE) with a C5-2 MHz transducer. Multiple elastography samples are obtained. FINDINGS: PANCREAS: The visualized pancreatic head and body are normal in appearance. The remainder of the pancreas is obscured from visualization by the overlying bowel gas. ABDOMINAL AORTA: No aortic aneurysm is seen. INFERIOR VENA CAVA: Visualized portions are normal. LIVER: The liver demonstrates normal size, contour and echogenicity. No focal lesion or intrahepatic biliary duct dilatation. The right lobe measures 14.2 cm in length. The left lobe measures 11.2 cm in length. Portal flow is towards the liver (hepatopetal). Shear wave liver elastography median stiffness is 1.97 m/s (reference: normal median stiffness is 1.3 m/s or less). IQR/median stiffness to assess sampling precision is 0.27 (reference: good quality data set is IQR/median stiffness of 0.15 or less). GALLBLADDER: No bladder is surgically absent. COMMON BILE DUCT: Normal in caliber measuring 0.6 cm in diameter. RIGHT KIDNEY: No hydronephrosis. No renal calculi or focal parenchymal lesions. The kidney measures 11.0. cm in maximum dimension. There is a tiny focal calcification in the midpole cortex. LEFT KIDNEY: No hydronephrosis. No renal calculi or focal parenchymal lesions. The kidney measures 10.8 cm in maximum dimension. SPLEEN: Unremarkable. The spleen measures 10.0 cm in maximum dimension. FREE FLUID: None seen. US/US abdomen comp w elastography IMPRESSION: 1. Liver demonstrates normal echogenicity, size, and contour. No focal lesions seen. No biliary dilatation. 2. Liver elastography: Although measurements are suggestive of compensated advanced chronic liver disease, there is statistical variability of the sampling which decreases accuracy. 3. Cholecystectomy. 4. Focal calcification in the right kidney midpole cortex, likely not clinically significant. REFERENCE: Society of Radiologists in Ultrasound Liver Stiffness Thresholds (2019): LIVER STIFFNESS THRESHOLDS: *Liver Stiffness equal or less than 1.3 m/s: High probability of being normal. *Liver Stiffness less than 1.7 m/s: In the absence of other known clinical signs, rules out compensated advanced chronic liver disease. *Liver Stiffness 1.7-2.1 m/s: Suggestive of compensated advanced chronic liver disease but need further test for confirmation. *Liver Stiffness over 2.1 m/s: Rules in compensated advanced chronic liver disease. *Liver Stiffness over 2.4 m/s: Suggestive of clinically significant portal hypertension. QUALITY OF DATA SET: *IQR/Median value equal or less than 0.15 implies a quality data set. *IQR/Median value over 0.15 implies a poor quality data set. SIGNIFICANT CHANGE FROM PRIOR EXAM: Significant change if liver stiffness measurement is 10% or greater from prior exam. OTHER CONSIDERATIONS: The stage of liver fibrosis may be overestimated in the setting of acute hepatitis, liver inflammation, elevated liver function tests, hepatic vascular congestion, obstructive cholestasis, non-fasting state, and infiltrative diseases such as amyloidosis and lymphoma. In some patients with NAFLD, the liver stiffness thresholds for compensated advanced chronic liver disease may be lower. In causes other than viral hepatitis and NAFLD, liver stiffness thresholds are not well established. Electronically signed by: Paulie Topete MD 08/12/2024 10:15 AM EDT
--- OUTSIDE RECORDS SUMMARY | 2024-08-12 09:49 | XMS_ITS | Clinical Summary ---
Author Organization [facility] ity Address [address] [place] [address] Care Team Providers Care Supervisor Denture Department Name Role Phone Michael Oneill MD Primary [...] age to complete this topic Care Teams Supervisor Denture Department Relationship Specialty Start Date End Date Michael Oneill MD [address] [place] [phone] PCP - General Internal Medicine 08/15/17
== END 2024-08-12 09:08 | disposition home or self-care (01) ==
LOC: HO.US 09:07
PROVIDERS: PCP Internal Medicine; Visit Provider Surgery
DX: E66.811 Obesity, class 1 (principal); E66.09 Other obesity due to excess calories; Z68.33 Body mass index [BMI] 33.0-33.9, adult; I10 Essential (primary) hypertension
CPT/HCPCS: 76700; 76981

== ENCOUNTER → 2024-08-12 09:09 | Outpatient (BNV) | payer MEDICARE, MEDICAID, SELFPAY | PROVIDERS: PCP Internal Medicine; Visit Provider Radiology Diagnostic Radiology | DX: E66.01 Morbid (severe) obesity due to excess calories (principal) | CPT/HCPCS: 76700; 76981 ==

== ENCOUNTER 2024-09-15 08:54 | Outpatient (AMB) | payer MEDICARE, MEDICAID, SELFPAY ==
[2024-09-15 08:41] VITALS: BP 122/86; PULSE 73; O2SAT 96; BMI 33.7
--- NOTE | 2024-09-15 08:41 | MHC.OFFVIS ---
Vital Signs 09/15/24 08:41 Height 5 ft 3 in Intake Visit Reasons: Botox Education And Training Coordinator Required: No Accompanied by: Self / Same As Patient Allergies prochlorperazine (From Compazine) Allergy (Severe, Verified 09/15/24 08:41) Shortness of Breath fluoxetine (From Prozac) Allergy (Mild, Verified 09/15/24 08:41) Nausea and Vomiting lithium Allergy (Mild, Verified 09/15/24 08:41) Unknown divalproex sodium (From Depakote) Allergy (Unknown, Verified 09/15/24 08:41) Unknown peanut Allergy (Verified 09/15/24 08:41) throat tightens seafood Allergy (Verified 09/15/24 08:41) tongue tingles NUTS Allergy (Mild, Uncoded 06/18/24 09:04) Unknown seafood Allergy (Mild, Uncoded 06/18/24 09:04) Unknown raisin Adverse Reaction (Uncoded 06/18/24 09:04) Migraine PFSH Medical History (Updated 06/18/24 @ 09:38 by Hao Echeverria MD) BMI 33.0-33.9,adult Chronic migraine without aura, intractable, without status migrainosus Sebaceous cyst Leaky heart valve Anemia Depression Chronic migraine without aura HTN (hypertension) Surgical History History of cholecystectomy History of appendectomy Hx of bilateral breast reduction surgery Hx of removal of cyst H/O: hysterectomy Family History Mother Cancer Father HTN (hypertension) Diabetes Paternal Uncle Depression Sister Bipolar 1 disorder Social History Household Members: None Alcohol intake: never Patient Tobacco Use Status: Never used Tobacco Coding
--- NOTE | 2024-09-15 09:02 | A.OFFVIS_ITS ---
Vital Signs 09/15/24 08:41 Height 5 ft 3 in Weight 190 lb BMI 33.7 BP 122/86 Blood Pressure Location Rt brachial Position Sitting Pulse 73 Pulse Source Pulse Oximeter Pulse Oximetry (%) 96 Oxygen Delivery Method Room Air Intake Visit Reasons: Botox Horse Trainer Required: No Accompanied by: Self / Same As Patient Allergies prochlorperazine (From Compazine) Allergy (Severe, Verified 09/15/24 09:07) Shortness of Breath fluoxetine (From Prozac) Allergy (Mild, Verified 09/15/24 09:07) Nausea and Vomiting lithium Allergy (Mild, Verified 09/15/24 09:07) Unknown divalproex sodium (From Depakote) Allergy (Unknown, Verified 09/15/24 09:07) Unknown peanut Allergy (Verified 09/15/24 09:07) throat tightens seafood Allergy (Verified 09/15/24 09:07) tongue tingles NUTS Allergy (Mild, Uncoded 06/18/24 09:04) Unknown seafood Allergy (Mild, Uncoded 06/18/24 09:04) Unknown raisin Adverse Reaction (Uncoded 06/18/24 09:04) Migraine Medication List - Last Reconciled 09/15/24 by Ese Ray MD amlodipine 5 mg PO DAILY bupropion HCl XL (Wellbutrin XL) 300 mg PO QAM bupropion HCl XL 150 mg PO QAM cholecalciferol (vitamin D3) (Vitamin D3) 50 mcg PO DAILY clonazepam (Klonopin) 0.5 mg PO BID escitalopram oxalate (Lexapro) 20 mg PO BEDTIME escitalopram oxalate (Lexapro) 5 mg PO DAILY gabapentin 600 mg PO BEDTIME gabapentin 400 mg PO BID lurasidone 40 mg PO QPM 30 days magnesium chloride (Mag-Delay) 64 mg PO QPM multivitamin 1 tab PO DAILY sumatriptan succinate take 1 tab at onset of headache; if no relief, may repeat 1 tab after at least 2 hrs; max = 2 tabs/24 hrs PO HPI Comments Details: ? 63y/o female comes for treatment of her migraines with BOTOX. .How many migraine days prior to botox-20 How long do the migraines last-1-2 days Intensity of migraine- 12/04 ER visits related to [id number] Effectiveness of botox from last two treatment(s) How many migraine days since receiving treatment: 3-4 per month Change? in intensity of migraine?decreased Change in frequency of migraine?decreased Change in use of acute medication for migraine?decreased Change in quality of life?improved ER visits related to migraine?none Have at least three months elapsed since last treatment -yes ??? Most frequent reported adverse reactions following injection of botox for chronic migraine include neck pain (9%), headache(5%), eyelid ptosis(4%), migraine(4%), muscular weakness(4%), musculuskeletal stiffness(4%), bronchitis(3%), injection site pain (3%), musculoskeletal pain(3%), myalgia(3%), facial paresis(2%), HTN(2%) and muscle spasms(2%) were discussed in detail. ??? Botulinum toxin typeA 200units Lot no [id number] expiration 11/2026 was d iluted with 4 cc of normal saline in each vial. ??? Muscles injected- ??? Frontalis 4 sites ??? Procerus 1 site ??? Quality Improvement Manager- 2 sites ??? Temporalis- 8 sites ??? Occipitalis- 6 sites ??? Cervical paraspinals- 4 sites ??? Trapezius-10 units 6 sites zygomaticus major 5units each ??? 5 units each in 33 site ??? Total use- 195units ??? Discarded-5units [facility] Medical History BMI 33.0-33.9,adult Chronic migraine without aura, intractable, without status migrainosus Sebaceous cyst Leaky heart valve Anemia Depression Chronic migraine without aura HTN (hypertension) Surgical History History of cholecystectomy History of appendectomy Hx of bilateral breast reduction surgery Hx of removal of cyst H/O: hysterectomy Family History Mother Cancer Father HTN (hypertension) Diabetes Paternal Uncle Depression Sister Bipolar 1 disorder Social History Household Members: None Alcohol intake: never Patient Tobacco Use Status: Never used Tobacco Physical Exam Vital Signs: Last Vital Signs Pulse 73 09/15/24 08:41 BP 122/86 09/15/24 08:41 Pulse Ox 96 09/15/24 08:41 Oxygen Delivery Method Room Air 09/15/24 08:41 BMI result Body Mass Index 33.7 Const General: cooperative and healthy appearing Orientation/consciousness: patient oriented x3 Neuro General: patient oriented x3, gait normal, tone normal and moves all extremities Cranial nerves: Yes CN's II-XII intact bilaterally Cognition (Neuro): normal cognition Office Procedures Botulinum toxin Injection 60448 - Migraine Procedure code (CPT) selection complete Office Meds onabotulinumtoxinA 200 unit solution for injection Performing Provider: Ese Ray MD Performing Location: [facility] Administered by: Ese Ray MD on 09/15/24 12:11 Dose Route Admin Location Dispensed Lot Number Expiration Date [place] [employer] Facilities Rental Manager 195 unit subcut 200 units [id number] ALLERGAN /BOTOX Total Dispensed Waste 200 units 2.5 % Comments: see hpi Assessment & Plan Assessment & Plan (1) Chronic migraine without aura, intractable, without status migrainosus: Code(s): G43.719 - Chronic migraine without aura, intractable, without status migrainosus Category: Medical (2) Migraine with aura, intractable, without status migrainosus: Code(s): G43.119 - Migraine with aura, intractable, without status migrainosus Category: Medical Plan Patient tolerated the procedure well she will call with any side effects Orders: Orders AMB Botulinum toxin Injection Today G43.119 - Migraine with aura, intractable, without status migrainosus, G43.719 - Chronic migraine without aura, intractable, without status migrainosus Coding Level of Care Code Est Pt Level 1 (17973) Diagnoses Chronic migraine without aura, intractable, without status migrainosus G43.719 Migraine with aura, intractable, without status migrainosus G43.119 CPT Codes Botox Injection - Botox 3: 39909 - Migraine ([id number])
--- OUTSIDE RECORDS SUMMARY | 2024-09-15 09:21 | XMS_ITS | Clinical Summary ---
Author Organization [facility] Address [address] [place] [address] Care Team Providers Care Lunch Truck Driver Name Role Phone Michael Oneill MD Primary [...] Vaccine ( - 2023-2 5 season) 2023 Depression Screening 02/26/2024 Influenza Vaccine (#1) 2024 RSV Immunization Adult Patie nts (1 [...] age to complete this topic Care Teams Lunch Truck Driver Relationship Specialty Start Date End Date Michael Oneill MD [address] [phone] PCP - General Internal Medicine 08/15/17
== END 2024-09-15 09:34 | disposition home or self-care (01) ==
LOC: HO.HSMS 08:55
PROVIDERS: PCP Internal Medicine; Visit Provider Psychiatry & Neurology Neurology
DX: G43.119 Migraine with aura, intractable, without status migrainosus (principal); G43.719 Chronic migraine without aura, intractable, without status migrainosus
CPT/HCPCS: 64615

== ENCOUNTER → 2024-09-15 08:54 | Outpatient (BNVA) | payer MEDICARE, MEDICAID, SELFPAY | PROVIDERS: PCP Internal Medicine; Visit Provider Psychiatry & Neurology Neurology | DX: G43.719 Chronic migraine without aura, intractable, without status migrainosus (principal); G43.119 Migraine with aura, intractable, without status migrainosus | CPT/HCPCS: 64615; 99211; J0585 ==

== ENCOUNTER 2024-10-20 08:21 | Outpatient (REF) | payer MEDICARE, MEDICAID, SELFPAY ==
--- NOTE | ~2024-10-20 | FL_ITS ---
EXAMINATION: XR FLUOROSCOPY UPPER GI SERIES CLINICAL INFORMATION: Obesity, class I. Patient has no complaints. COMPARISON: None TECHNIQUE: Fluoroscopic air contrast upper GI examination was performed utilizing standard techniques with thin and thick barium and effervescent granules. Numerous spot images were obtained. Several fluoroscopic image hold cine sequences were also obtained. FINDINGS: UPPER GI SERIES: Lateral cine images of the oropharynx and hypopharynx demonstrate normal swallow mechanism with normal epiglottic inversion and soft palate elevation. There was transient laryngeal penetration. Trace aspiration noted on the first swallow only. No nasopharyngeal reflux present. Hypopharyngeal structures appear normal without evidence of mass or diverticulum. There was mild to moderate cricopharyngeal achalasia. Dual and single contrast images of the esophagus demonstrate normal caliber, contour, and mucosal pattern. No evidence of stricture, mass, or ulcerations identified. Esophageal peristalsis was mild to moderately disordered. There was a feline contraction pattern identified. Tiny type I hiatus hernia. No definite gastroesophageal reflux was seen during the course of the examination. Dual contrast and single contrast images of the stomach demonstrated normal contour and mucosal pattern without evidence of mass, ulceration, or other abnormality. Normal rugal fold pattern. Contrast freely passed into the gastric antrum and duodenal bulb without delay. Single and air-contrast images of the duodenal bulb demonstrate no abnormality. The duodenal sweep has a normal appearance, course, and mucosal fold appearance. Cholecystectomy clips are present. FLUOROSCOPY TIME: 3 minutes, 3 seconds. Number of Spot Images:9 Number of cines obtained: 13 DOSE AREA PRODUCT: 3963 uGy-m2 (microgray-meter squared) FL/FL upper GI w air IMPRESSION: 1. Transient laryngeal penetration identified. Trace subglottic aspiration noted on the first swallow only. 2. Mild to moderate cricopharyngeal achalasia present. 3. Mild to moderate disordered esophageal peristalsis. Feline contraction pattern in keeping with chronic reflux. 4. Tiny type I hiatus hernia. 5. No definite gastroesophageal reflux noted during the course of the exam. 6. Normal-appearing stomach and duodenum. Electronically signed by: Paulie Topete MD 10/20/2024 09:45 AM EDT
--- OUTSIDE RECORDS SUMMARY | 2024-10-20 08:32 | XMS_ITS | Clinical Summary ---
Author Organization [facility] ity Address [address] [place] [address] Care Team Providers Care Spine Surgeon Name Role Phone Michael Oneill MD Primary Care Provider [phone] Social History Tobacco Use Types Packs/Day Years [...] DTaP,Tdap,and Td Vaccines (1 - Tdap) 1977 Pneumococcal Vaccine: 50+ Ye ars (1 of [...] age to complete this topic Care Teams Spine Surgeon Relationship Specialty Start Date End Date Michael Oneill MD [address] [place] [phone] PCP - General Internal Medicine 08/15/17
== END 2024-10-20 08:22 | disposition home or self-care (01) ==
LOC: HO.XRAY 08:21
PROVIDERS: Visit Provider Surgery
DX: I10 Essential (primary) hypertension (principal); E66.811 Obesity, class 1; Z68.33 Body mass index [BMI] 33.0-33.9, adult
CPT/HCPCS: 74246

== ENCOUNTER → 2024-10-20 08:24 | Outpatient (BNV) | payer MEDICARE, MEDICAID, SELFPAY | PROVIDERS: Visit Provider Radiology Diagnostic Radiology | DX: R13.12 Dysphagia, oropharyngeal phase (principal); K44.9 Diaphragmatic hernia without obstruction or gangrene; K21.9 Gastro-esophageal reflux disease without esophagitis; E66.9 Obesity, unspecified | CPT/HCPCS: 74246 ==

== ENCOUNTER → 2024-10-28 08:30 | Outpatient (REF) | payer MEDICARE, MEDICAID, SELFPAY ==
--- NOTE | 2024-10-28 08:32 | CA_ITS ---
Acquisition Time: 2024-10-28 08:40:00 Total Exercise Time: 00:06:52 Test Indications: ABN EKG Medications: SEE H&P Protocol: MATHEW Max HR: 141 BPM 91% of Pred: 154 BPM Max BP: 160/70 mmHG Max Work Load: 7.0 METS Exercise stress test with exercise 6 mins 52 secs of Mathew Protocol held at Stage 2, achieving 84% MPHR, with reports of SOB and feeling fatigued, no chest pain, without any arrythmias, with normotensive response to exercise. Without any EKG changes meeting criteria for ischemia. In recovery, breathing improved and patient feeling back to baseline. Echo images obtained by tech at rest and post peak exercise. Definity contrast utilized. Test reviewed with Dr. Reno. Referred By: Hao Echeverria Electronically Signed By: Harrison Agrawal
--- OUTSIDE RECORDS SUMMARY | 2024-10-28 08:57 | XMS_ITS | Clinical Summary ---
Author Organization [facility] ity Address [address] [place] [address] Care Team Providers Care Sales Service Coordinator Name Role Phone Michael Oneill MD Primary [...] age to complete this topic Care Teams Sales Service Coordinator Relationship Specialty Start Date End Date Michael Oneill MD [address] [place] [phone] PCP - General Internal Medicine 08/15/17
== END ==
LOC: HO.CARD 08:30
PROVIDERS: PCP Internal Medicine; Visit Provider Surgery
DX: R94.31 Abnormal electrocardiogram [ECG] [EKG] (principal)
CPT/HCPCS: 93350; Q9957

== ENCOUNTER → 2024-10-28 08:32 | Outpatient (BNV) | payer MEDICARE, MEDICAID, SELFPAY | PROVIDERS: PCP Internal Medicine | DX: R06.02 Shortness of breath (principal) | CPT/HCPCS: 93016; 93018; 93350; 93352 ==

== ENCOUNTER 2024-11-02 14:09 | Outpatient (AMB) | payer MEDICARE, MEDICAID, SELFPAY ==
--- NOTE | 2024-11-02 14:05 | MHC.WMTHER ---
Intake Intake Visit Reasons: TV BH F/U Allergies prochlorperazine (From Compazine) Allergy (Severe, Verified 09/15/24 09:07) Shortness of Breath fluoxetine (From Prozac) Allergy (Mild, Verified 09/15/24 09:07) Nausea and Vomiting lithium Allergy (Mild, Verified 09/15/24 09:07) Unknown divalproex sodium (From Depakote) Allergy (Unknown, Verified 09/15/24 09:07) Unknown peanut Allergy (Verified 09/15/24 09:07) throat tightens seafood Allergy (Verified 09/15/24 09:07) tongue tingles NUTS Allergy (Mild, Uncoded 06/18/24 09:04) Unknown seafood Allergy (Mild, Uncoded 06/18/24 09:04) Unknown raisin Adverse Reaction (Uncoded 06/18/24 09:04) Migraine PFSH Medical History BMI 33.0-33.9,adult Chronic migraine without aura, intractable, without status migrainosus Sebaceous cyst Leaky heart valve Anemia Depression Chronic migraine without aura HTN (hypertension) Surgical History History of cholecystectomy History of appendectomy Hx of bilateral breast reduction surgery Hx of removal of cyst H/O: hysterectomy Family History Mother Cancer Father HTN (hypertension) Diabetes Paternal Uncle Depression Sister Bipolar 1 disorder Social History Household Members: None Alcohol intake: never Patient Tobacco Use Status: Never used Tobacco Behavioral Health Assessment Weight Management Therapy Therapy Notes Details Subjective: Patient reports her most recent weight is 184 lbs. She has been consistent with her meal and exercise plan given by the dr, feels stable, and is doing well overall. She notes strong support from her boyfriend and best friend. Objective: Patient attended a pre-operative follow-up via telehealth. She was engaged, oriented, and demonstrated good insight into her health behaviors and surgical preparation. Discussed current functioning, progress with lifestyle changes, and readiness for surgery. Explored the roles of motivation, discipline, and habit-building for long-term success. Addressed patient?s questions about the surgical process. Assessment/Response: Mental status: Within normal limits. The patient is alert, cooperative, and demonstrates appropriate mood and affect. No evidence of cognitive impairment or psychiatric distress. Risk reported/identified: None. Food/Weight/Diet Expectations of change PT started the program on 06/18/2024 at 190 lbs. As of today, she doesn't have an initial weight-loss goal but she has already gotten the scale and has been in communication with her provider. PT reported a weight from 08/10/2024, which was 195 lbs. PT states she wants to be around 145 lbs. post-op. PT is implementing the following: Current meal plan: combination of 2 shakes, 2 bars, and 1 meal (8FT/8FT) Exercise plan: Walking for 300 talia per day. at least 4 days a week. Scale: yes. Communication with provider: Weekly, Saturday. Assessment & Plan Assessment & Plan (1) Major depressive disorder without psychotic features: Code(s): F32.9 - Major depressive disorder, single episode, unspecified (2) Generalized anxiety disorder: Code(s): F41.1 - Generalized anxiety disorder Plan The patient remains cleared from a behavioral health standpoint and can be submitted for insurance approval when ready. A follow-up behavioral health visit will be scheduled 1?4 weeks postoperatively to assess psychological adjustment and screen for any concerns. Next appointment: 1-4 Weeks Post-op. Telehealth Telehealth [facility]health [facility] Location of provider rendering services: other (Home office. [place], [place]) Location of patient: address on file Patient Identification confirmed using: Name, : Yes Telehealth method: video Patient verbally consented to treatment: Yes Patient verbally consented to billing insurance company: Yes Patient informed of any privacy concerns related to visit: Yes Minutes spent on Phone/Video with Pt.: 45 Coding Level of Care Code Established Pt Tele Psytx 45 mins (46415) Patient Type Established Diagnoses Major depressive disorder without psychotic features F32.9 Generalized anxiety disorder F41.1 Time Spent (min) 45
--- OUTSIDE RECORDS SUMMARY | 2024-11-02 16:31 | XMS_ITS | Clinical Summary ---
Author Organization [facility] ity Address [address] [place] [address] Care Team Providers Care Librarian Special Collections Name Role Phone Michael Oneill MD Primary [...] 2008 Zoster Vaccines (1 of 2) 2008 Depression Screening 02/26/2024 COVID-19 Vaccine (1 - 2023-2 5 season) 2024 Influenza Vaccine (#1) 2024 RSV Immunization Adult [...] age to complete this topic Care Teams Librarian Special Collections Relationship Specialty Start Date End Date Michael Oneill MD [address] [place] [phone] PCP - General Internal Medicine 08/15/17
== END 2024-11-02 15:02 | disposition home or self-care (01) ==
LOC: HO.HBST 14:09
PROVIDERS: PCP Internal Medicine; Visit Provider Counselor Mental Health
DX: F32.9 Major depressive disorder, single episode, unspecified (principal); F41.1 Generalized anxiety disorder
CPT/HCPCS: 90834

== ENCOUNTER 2024-11-10 12:50 | Day surgery (SDC) | payer MEDICARE, MEDICAID, SELFPAY ==
--- OUTSIDE RECORDS SUMMARY | 2024-07-06 07:36 | XMS_ITS | Clinical Summary ---
Author Organization [facility] it[facility] Address [address] [place] [address] Care Team Providers Care Grounds/Maintenance Specialist Name Role Phone Michael Oneill MD Primary [...] age to complete this topic Care Teams Grounds/Maintenance Specialist Relationship Specialty Start Date End Date Michael Oneill MD [address] [place] [address] [phone] PCP - General Internal Medicine 08/15/17
--- NOTE | 2024-07-08 12:39 | HO.ANESPROP2 ---
HPI - Anesthesia Eval Consult details Narrative: 63yo F for Upper Endoscopy PMFSH Active Problems Active Problems: All Active Problems BMI 33.0-33.9,adult (Acute) Obesity (Acute) Chronic migraine without aura, intractable, without status migrainosus (Acute) Bipolar affect, depressed (Acute) Generalized anxiety disorder (Acute) Major depressive disorder without psychotic features (Acute) Migraine with aura, intractable, without status migrainosus (Acute) Anemia (Acute) Depression (Acute) Chronic migraine without aura (Acute) HTN (hypertension) (Acute) Past Medical History Medical History (Updated 06/18/24 @ 09:38 by Hao Echeverria MD) BMI 33.0-33.9,adult Chronic migraine without aura, intractable, without status migrainosus Sebaceous cyst Leaky heart valve Anemia Depression Chronic migraine without aura HTN (hypertension) Family History Family History Mother Cancer Father HTN (hypertension) Diabetes Paternal Uncle Depression Sister Bipolar 1 disorder Surgical History Surgical History History of cholecystectomy History of appendectomy Hx of bilateral breast reduction surgery Hx of removal of cyst H/O: hysterectomy Social History Social History Household Members: None Alcohol intake: never Patient Tobacco Use Status: Never used Tobacco Meds Allergies Allergy/AdvReac Type Severity Reaction Status Date / Time prochlorperazine Allergy Severe Shortness Verified 06/18/24 09:04 [From Compazine] of Breath fluoxetine [From Prozac] Allergy Mild Nausea and Verified 06/18/24 09:04 Vomiting lithium Allergy Mild Unknown Verified 06/18/24 09:04 divalproex sodium Allergy Unknown Unknown Verified 06/18/24 09:04 [From Depakote] peanut Allergy throat Verified 06/18/24 09:04 tightens seafood Allergy tongue Verified 06/18/24 09:04 tingles NUTS Allergy Mild Unknown Uncoded 06/18/24 09:04 seafood Allergy Mild Unknown Uncoded 06/18/24 09:04 raisin AdvReac Migraine Uncoded 06/18/24 09:04 Home Medications ?Medication ?Instructions ?Recorded ?Confirmed ?Last Taken ?Type clonazepam 0.5 mg tablet (Klonopin) 0.5 mg PO BID 06/12/22 06/18/24 03/22/23 08:00 History bupropion HCl 300 mg 24 hr tablet, 300 mg PO QAM 03/22/23 06/18/24 03/22/23 08:00 History extended release (Wellbutrin XL) cholecalciferol (vitamin D3) 50 50 mcg PO DAILY 03/22/23 06/18/24 03/21/23 13:00 History mcg (2,000 unit) capsule (Vitamin D3) escitalopram oxalate 20 mg tablet 20 mg PO BEDTIME 03/22/23 06/18/24 03/21/23 21:00 History (Lexapro) escitalopram oxalate 5 mg tablet 5 mg PO DAILY 03/22/23 06/18/24 03/21/23 21:00 History (Lexapro) gabapentin 300 mg capsule 600 mg PO BEDTIME 03/22/23 06/18/24 03/21/23 21:00 History gabapentin 400 mg capsule 400 mg PO BID 03/22/23 06/18/24 03/22/23 08:00 History multivitamin 1 tab PO DAILY 03/22/23 06/18/24 03/21/23 13:00 History bupropion HCl 150 mg 24 hr tablet, 150 mg PO QAM 06/09/24 06/18/24 Unknown History extended release magnesium chloride 64 mg 64 mg PO QPM 06/09/24 06/18/24 Unknown History (magnesium chloride) tablet,delayed release (Mag-Delay) Exam Narrative Narrative: EKG 06/2024 Vent. Rate : 67 BPM Atrial Rate : 67 BPM P-R Int : 166 ms QRS Dur : 140 ms QT Int : 460 ms P-R-T Axes : -2 39 -1 degrees QTcB Int : 486 ms Normal sinus rhythm Right bundle branch block Abnormal ECG No previous ECGs available Assessment and Plan Assessment Anesthesia Assessment: Chart Reviewed
--- NOTE | 2024-11-06 14:24 | HO.ANESPROP2 ---
Documented by User: Shanon Gibbons NP 11/06/24 14:26 HPI - Anesthesia Eval Consult details Narrative: 64yo F for Upper Endoscopy Medically optimized per [facility] for gastric sleeve PMFSH Active Problems Active Problems: All Active Problems Abnormal EKG (Acute) BMI 33.0-33.9,adult (Acute) Obesity (Acute) Chronic migraine without aura, intractable, without status migrainosus (Acute) Bipolar affect, depressed (Acute) Generalized anxiety disorder (Acute) Major depressive disorder without psychotic features (Acute) Migraine with aura, intractable, without status migrainosus (Acute) Anemia (Acute) Depression (Acute) Chronic migraine without aura (Acute) HTN (hypertension) (Acute) Past Medical History Medical History BMI 33.0-33.9,adult Chronic migraine without aura, intractable, without status migrainosus Sebaceous cyst Leaky heart valve Anemia Depression Chronic migraine without aura HTN (hypertension) Family History Family History Mother Cancer Father HTN (hypertension) Diabetes Paternal Uncle Depression Sister Bipolar 1 disorder Surgical History Surgical History History of cholecystectomy History of appendectomy Hx of bilateral breast reduction surgery Hx of removal of cyst H/O: hysterectomy Social History Social History Household Members: None Alcohol intake: never Patient Tobacco Use Status: Never used Tobacco Have you been hit, kicked, punched, or otherwise hurt by someone within the past year? If so, by whom?: No Are you DNR?: No Advance Directives: No Advance Directives Information Provided: Yes Meds Allergies Allergy/AdvReac Type Severity Reaction Status Date / Time prochlorperazine (From Allergy Severe Shortness Verified 09/15/24 09:07 Compazine) of Breath fluoxetine (From Prozac) Allergy Mild Nausea and Verified 09/15/24 09:07 Vomiting lithium Allergy Mild Unknown Verified 09/15/24 09:07 divalproex sodium (From Allergy Unknown Unknown Verified 09/15/24 09:07 Depakote) peanut Allergy throat Verified 09/15/24 09:07 tightens seafood Allergy tongue Verified 09/15/24 09:07 tingles NUTS Allergy Mild Unknown Uncoded 06/18/24 09:04 seafood Allergy Mild Unknown Uncoded 06/18/24 09:04 raisin AdvReac Migraine Uncoded 06/18/24 09:04 Home Medications ?Medication ?Instructions ?Recorded ?Confirmed ?Last Taken ?Type clonazepam 0.5 mg tablet (Klonopin) 0.5 mg PO BID 06/12/22 11/10/24 11/09/24 History bupropion HCl 300 mg 24 hr tablet, 300 mg PO QAM 03/22/23 11/10/24 11/09/24 History extended release (Wellbutrin XL) cholecalciferol (vitamin D3) 50 50 mcg PO DAILY 03/22/23 11/10/24 11/09/24 History mcg (2,000 unit) capsule (Vitamin D3) escitalopram oxalate 20 mg tablet 20 mg PO BEDTIME 03/22/23 11/10/24 11/09/24 History (Lexapro) escitalopram oxalate 5 mg tablet 5 mg PO DAILY 03/22/23 11/10/24 11/09/24 History (Lexapro) gabapentin 300 mg capsule 600 mg PO BEDTIME 03/22/23 11/10/24 11/09/24 History gabapentin 400 mg capsule 400 mg PO BID 03/22/23 11/10/24 11/09/24 History multivitamin 1 tab PO DAILY 03/22/23 11/10/24 11/09/24 History bupropion HCl 150 mg 24 hr tablet, 150 mg PO QAM 06/09/24 11/10/24 11/09/24 History extended release magnesium chloride 64 mg 64 mg PO QPM 06/09/24 11/10/24 11/09/24 History (magnesium chloride) tablet,delayed release (Mag-Delay) Exam Narrative Narrative: EKG 09/2024 [id number] Ventricular Rate: 70 BPM Atrial Rate: 70 BPM P-R Interval: 186 ms QRS Duration: 142 ms Q-T Interval: 418 ms QTC Calculation(Bazett): 451 ms P [place]: 32 degrees R [place]: 73 degrees T [place]: -8 degrees Normal sinus rhythm Right bundle branch block Abnormal ECG When compared with ECG of 16-Jul-2019 16:28, No significant change was found Confirmed by MIRANDA GARCIA ([id number]) on 10/14/2024 4:48:51 PM Cardiopulm Stress 10/2024 Acquisition Time: 2024-10-28 08:40:00 Total Exercise Time: 00:06:52 Test Indications: ABN EKG Medications: SEE H&P Protocol: EUSEBIO Max HR: 141 BPM 91% of Pred: 154 BPM Max BP: 160/70 mmHG Max Work Load: 7.0 METS Exercise stress test with exercise 6 mins 52 secs of Eusebio Protocol held at Stage 2, achieving 84% MPHR, with reports of SOB and feeling fatigued, no chest pain, without any arrythmias, with normotensive response to exercise. Without any EKG changes meeting criteria for ischemia. In recovery, breathing improved and patient feeling back to baseline. Echo images obtained by tech at rest and post peak exercise. Definity contrast utilized. Test reviewed with Dr. Reno. Assessment and Plan Assessment Anesthesia Assessment: Chart Reviewed Documented by User: Joy Esquivel MD 11/10/24 14:41 [facility] Past Medical History Medical History BMI 33.0-33.9,adult Chronic migraine without aura, intractable, without status migrainosus Sebaceous cyst Leaky heart valve Anemia Depression Chronic migraine without aura HTN (hypertension) Family History Family History Mother Cancer Father HTN (hypertension) Diabetes Paternal Uncle Depression Sister Bipolar 1 disorder Surgical History Surgical History History of cholecystectomy History of appendectomy Hx of bilateral breast reduction surgery Hx of removal of cyst H/O: hysterectomy History of Problems with Anesthesia: No Social History Social History Household Members: None Alcohol intake: never Patient Tobacco Use Status: Never used Tobacco Have you been hit, kicked, punched, or otherwise hurt by someone within the past year? If so, by whom?: No Are you DNR?: No Advance Directives: No Advance Directives Information Provided: Yes Meds Allergies Allergy/AdvReac Type Severity Reaction Status Date / Time prochlorperazine (From Allergy Severe Shortness Verified 09/15/24 09:07 Compazine) of Breath fluoxetine (From Prozac) Allergy Mild Nausea and Verified 09/15/24 09:07 Vomiting lithium Allergy Mild Unknown Verified 09/15/24 09:07 divalproex sodium (From Allergy Unknown Unknown Verified 09/15/24 09:07 Depakote) peanut Allergy throat Verified 09/15/24 09:07 tightens seafood Allergy tongue Verified 09/15/24 09:07 tingles NUTS Allergy Mild Unknown Uncoded 06/18/24 09:04 seafood Allergy Mild Unknown Uncoded 06/18/24 09:04 raisin AdvReac Migraine Uncoded 06/18/24 09:04 Home Medications ?Medication ?Instructions ?Recorded ?Confirmed ?Last Taken ?Type clonazepam 0.5 mg tablet (Klonopin) 0.5 mg PO BID 06/12/22 11/10/24 11/09/24 History bupropion HCl 300 mg 24 hr tablet, 300 mg PO QAM 03/22/23 11/10/24 11/09/24 History extended release (Wellbutrin XL) cholecalciferol (vitamin D3) 50 50 mcg PO DAILY 03/22/23 11/10/24 11/09/24 History mcg (2,000 unit) capsule (Vitamin D3) escitalopram oxalate 20 mg tablet 20 mg PO BEDTIME 03/22/23 11/10/24 11/09/24 History (Lexapro) escitalopram oxalate 5 mg tablet 5 mg PO DAILY 03/22/23 11/10/24 11/09/24 History (Lexapro) gabapentin 300 mg capsule 600 mg PO BEDTIME 03/22/23 11/10/24 11/09/24 History gabapentin 400 mg capsule 400 mg PO BID 03/22/23 11/10/24 11/09/24 History multivitamin 1 tab PO DAILY 03/22/23 11/10/24 11/09/24 History bupropion HCl 150 mg 24 hr tablet, 150 mg PO QAM 06/09/24 11/10/24 11/09/24 History extended release magnesium chloride 64 mg 64 mg PO QPM 06/09/24 11/10/24 11/09/24 History (magnesium chloride) tablet,delayed release (Mag-Delay) Exam Airway Mallampati Class: II TM Dist: >3cm Neck ROM: Full Loose/Missing/Broken Teeth: No Heart: RRR Lungs: CTA Assessment and Plan Assessment Anesthesia Assessment: Anesthesia Plan Discussed Final Anesthetic Review History of Problems with Anesthesia: No NPO: Yes ASA Class: II Final Preanesthetic Review: Meds/Allgs Chart Reviewed, Consent Obtained/Reviewed and Anes Risks/Benef Reviewed Patient Risk: Low Procedure Risk: Intermediate Anesthetic Plan Anesthetic Plan: MAC: Disposition: Standard PACU
[2024-11-10 05:00] VITALS: BMI 33.7
[2024-11-10 13:10] VITALS: BP 149/78; PULSE 67; RESP 18; TEMP 36.1; O2SAT 96; BMI 32.1
[2024-11-10] MEDS: Lactated Ringers 1,000 ML 100 ML IVCONT (13:29)
--- NOTE | 2024-11-10 15:13 | MHC.SHP ---
Pre-Procedural Eval Section A - 24 Hr Update-Section A only Date of Service: 11/10/24 The patient is an INPATIENT: No The patient has been examined within 24 hours of the surgical procedure. The History & Physical has been completed within 30 days and I have reviewed it.: Yes Section B - Complete if H&P > 30 days Chief Complaint: Morbid (severe) obesity due to excess calories Details of Present Illness: Obesity Relevant Family History (Specify if Yes): No Relevant Social History: None Present Medications: None Medical History: No relevant PMH History of Previous Operations: No relevant previous surgery Allergies: Allergies Allergy/AdvReac Type Severity Reaction Status Date / Time prochlorperazine (From Allergy Severe Shortness Verified 09/15/24 09:07 Compazine) of Breath fluoxetine (From Prozac) Allergy Mild Nausea and Verified 09/15/24 09:07 Vomiting lithium Allergy Mild Unknown Verified 09/15/24 09:07 divalproex sodium (From Allergy Unknown Unknown Verified 09/15/24 09:07 Depakote) peanut Allergy throat Verified 09/15/24 09:07 tightens seafood Allergy tongue Verified 09/15/24 09:07 tingles NUTS Allergy Mild Unknown Uncoded 06/18/24 09:04 seafood Allergy Mild Unknown Uncoded 06/18/24 09:04 raisin AdvReac Migraine Uncoded 06/18/24 09:04 Review of Systems Sugical H&P ROS: Negative: Constitution, Cardiovascular, Respiratory, Neurological, Psychiatric, Hem-Onc, Allergic/Immunologic, Gastrointestinal, Genitourinary, Musculoskeletal, Integumentary, Endocrine and Eyes/Ears/Nose/Throat Exam Surgical H&P Exam: Normal: HEENT, Normal: Heart, Normal: Lungs, Normal: Extremities, Normal: Abdomen, Normal: Skin and Normal: Neurological Plan Diagnosis/Plan: Unchanged (EGD to assess the stomach's anatomy. Risks of bleeding and perforation were discussed with the patient and she is in agreement with the plan.) I have reviewed the history and physical and performed a pertinent physical examination on my patient. No changes have occurred unless specified. Time Spent With Patient Time: Total time managing care of this patient today ____ minutes.
--- NOTE | 2024-11-10 15:16 | P.BOP_ITS ---
Brief Operative Note Date of Service: 11/10/24 Pre-op diagnosis: Obesity Post-op diagnosis: same (& Gastritis) Procedure: PROCEDURE DATE: 11/10/2024 PREOPERATIVE DIAGNOSIS: GERD POSTOPERATIVE DIAGNOSIS: ?Same as above. Gastritis PROCEDURE: Gonruyph-akykba-ipzwrfoaaetf with biopsies Surgeon: Dave Echeverria M.D.. Ph.D. Supervisor Vacuum Metalizing: None ? Anesthesia: IV sedation Estimated blood loss: ?Minimal FINDINGS AND PROCEDURE: ? OPERATIVE INDICATIONS: ?The patient is a 64 year old female known to me who is interested in bariatric surgery. The patient has GERD. Based on this information I recommended an upper endoscopy to evaluate the patient's symptoms. Risks and complications of the surgery were discussed with the patient in advance particularly the possibility of perforation or bleeding that may require surgical intervention. The patient understood the risks and was in agreement with the plan. ? PROCEDURE: After informed consent was obtained by the patient, the patient was ?transferred to the Operating Room and was placed in the supine position.? After successful induction of IV sedation, a mouth block was inserted and the patient was placed in the left lateral decubitus position. An upper endoscopy was performed next, the oropharynx and esophagus appeared within the normal limits. There was no hiatal hernia. The z-line was smooth. Two biopsies were obtained from the distal esophagus 2-3 cm proximal to the GE junction and two additional biopsies from the GE junction. The stomach was entered and it appeared to be of normal size. There was gastritis at the antrum. There was no stricture or ulcer. A biopsy was obtained from the gastric fundus and the antrum. No significant bleeding was noted from any of the biopsy sites. Retroflexion of the scope confirmed the presence of a normal GE junction. The scope was then advanced into the duodenum which appeared to be normal as well. At that point the duodenum ?and the stomach were decompressed and the scope was withdrawn from the patient's mouth. The patient extubated and was transferred in stable condition to the Recovery Room for further care. I was present and performed all steps of the procedure. There were no residents to assist with this case. Michael Echeverria M.D., Ph.D. Surgeon: Hao Echeverria MD Anesthesia: MAC Was an Supervisor Vacuum Metalizing used for this Procedure?: No Estimated blood loss (mL): 0 IV fluids (mL): 400 Urine output (mL): 0 (No Bull to record output) Pathology: other (1) antrum x1, 2) fundus x1, 3) GE junction x2, 4) distal esophagus x2) Condition: stable Disposition: PACU
[2024-11-10 15:35] VITALS: BP 128/67; PULSE 59; RESP 16; TEMP 36.3; O2SAT 96
[2024-11-10 15:50] VITALS: BP 132/72; PULSE 57; RESP 20; TEMP 36.4; O2SAT 96
== END 2024-11-10 16:10 | disposition home or self-care (01) ==
PROVIDERS: PCP Internal Medicine; Visit Provider Surgery
PROC: 0DJ08ZZ Inspection of Upper Intestinal Tract, Via Natural or Artificial Opening Endoscopic (ICD-10-PCS; CPT 43235; principal; 2024-11-10 15:50)
DX: K21.9 Gastro-esophageal reflux disease without esophagitis (principal); E66.09 Other obesity due to excess calories; E66.01 Morbid (severe) obesity due to excess calories; Z68.33 Body mass index [BMI] 33.0-33.9, adult; K29.70 Gastritis, unspecified, without bleeding; G43.719 Chronic migraine without aura, intractable, without status migrainosus; I34.9 Nonrheumatic mitral valve disorder, unspecified; I10 Essential (primary) hypertension; D64.9 Anemia, unspecified; F32.A Depression, unspecified; Z79.899 Other long term (current) drug therapy; Z88.8 Allergy status to other drugs, medicaments and biological substances; Z91.018 Allergy to other foods; Z91.010 Allergy to peanuts; Z91.013 Allergy to seafood; Z98.890 Other specified postprocedural states
CPT/HCPCS: 43239; 88305; 88313; 88342; J2704

== ENCOUNTER → 2024-11-10 12:50 | Outpatient (BNV) | payer MEDICARE, MEDICAID, SELFPAY | PROVIDERS: PCP Internal Medicine; Visit Provider Surgery | DX: K21.9 Gastro-esophageal reflux disease without esophagitis (principal); K29.70 Gastritis, unspecified, without bleeding | CPT/HCPCS: 43239 ==

== ENCOUNTER 2024-12-22 12:35 | Outpatient (AMB) | payer MEDICARE, MEDICAID, SELFPAY ==
[2024-12-22 12:38] VITALS: BP 126/84; PULSE 74; O2SAT 98; BMI 32.2
--- NOTE | 2024-12-22 12:38 | MHC.OFFVIS ---
Vital Signs 12/22/24 12:38 Height 5 ft 3 in Weight 182 lb BMI 32.2 BP 126/84 Blood Pressure Location Rt brachial Position Sitting Pulse 74 Pulse Source Pulse Oximeter Pulse Oximetry (%) 98 Oxygen Delivery Method Room Air Intake Visit Reasons: Botox ok per MD Intake Note: Botox 200 Senior Application Programmer Required: No Accompanied by: Self / Same As Patient Allergies prochlorperazine (From Compazine) Allergy (Severe, Verified 12/22/24 12:38) Shortness of Breath fluoxetine (From Prozac) Allergy (Mild, Verified 12/22/24 12:38) Nausea and Vomiting lithium Allergy (Mild, Verified 12/22/24 12:38) Unknown divalproex sodium (From Depakote) Allergy (Unknown, Verified 12/22/24 12:38) Unknown peanut Allergy (Verified 12/22/24 12:38) throat tightens seafood Allergy (Verified 12/22/24 12:38) tongue tingles NUTS Allergy (Mild, Uncoded 06/18/24 09:04) Unknown seafood Allergy (Mild, Uncoded 06/18/24 09:04) Unknown raisin Adverse Reaction (Uncoded 06/18/24 09:04) Migraine HPI Comments Details: ? 64y/o female comes for treatment of her migraines with BOTOX. .How many migraine days prior to botox-20 How long do the migraines last-1-2 days Intensity of migraine- 12/04 ER visits related to qkghnpbz-1-5 Effectiveness of botox from last two treatment(s) How many migraine days since receiving treatment: 3-4 per month Change? in intensity of migraine?decreased Change in frequency of migraine?decreased Change in use of acute medication for migraine?decreased Change in quality of life?improved ER visits related to migraine?none Have at least three months elapsed since last treatment -yes ??? Most frequent reported adverse reactions following injection of botox for chronic migraine include neck pain (9%), headache(5%), eyelid ptosis(4%), migraine(4%), muscular weakness(4%), musculuskeletal stiffness(4%), bronchitis(3%), injection site pain (3%), musculoskeletal pain(3%), myalgia(3%), facial paresis(2%), HTN(2%) and muscle spasms(2%) were discussed in detail. ??? Botulinum toxin typeA 200units Lot no [id number] expiration 01/2027 was diluted with 4 cc of normal saline in each vial. ??? Muscles injected- ??? Frontalis 4 sites ??? Procerus 1 site ??? Edge Molder- 2 sites ??? Temporalis- 8 sites ??? Occipitalis- 6 sites ??? Cervical paraspinals- 4 sites ??? Trapezius-10 units 6 sites ??? 5 units each in 31 site ??? Total use- 185units ??? Discarded-15units [facility] Medical History BMI 33.0-33.9,adult Chronic migraine without aura, intractable, without status migrainosus Sebaceous cyst Leaky heart valve Anemia Depression Chronic migraine without aura HTN (hypertension) Surgical History History of cholecystectomy History of appendectomy Hx of bilateral breast reduction surgery Hx of removal of cyst H/O: hysterectomy Family History Mother Cancer Father HTN (hypertension) Diabetes Paternal Uncle Depression Sister Bipolar 1 disorder Social History Household Members: None Alcohol intake: never Patient Tobacco Use Status: Never used Tobacco Physical Exam Vital Signs: Last Vital Signs Pulse 74 12/22/24 12:38 BP 126/84 12/22/24 12:38 Pulse Ox 98 12/22/24 12:38 Oxygen Delivery Method Room Air 12/22/24 12:38 BMI result Body Mass Index 32.2 Const General: cooperative and healthy appearing Orientation/consciousness: patient oriented x3 Neuro General: patient oriented x3, gait normal, tone normal and moves all extremities Cranial nerves: Yes CN's II-XII intact bilaterally Cognition (Neuro): normal cognition Office Procedures Botulinum toxin Injection 83986 - Migraine Procedure code (CPT) selection complete Office Meds onabotulinumtoxinA 200 unit solution for injection Performing Provider: Ese Ray MD Performing Location: [facility] [place] Administered by: Ese Ray MD on 12/22/24 13:03 Dose Route Admin Location Dispensed Lot Number Expiration Date NDC Outpatient Services Director 185 unit subcut 200 units [id number] ALLERGAN/BOTOX Total Dispensed Waste 200 units 7.5 % Comments: see hpi Assessment & Plan Assessment & Plan (1) Chronic migraine without aura, intractable, without status migrainosus: Code(s): G43.719 - Chronic migraine without aura, intractable, without status migrainosus Category: Medical (2) Migraine with aura, intractable, without status migrainosus: Code(s): G43.119 - Migraine with aura, intractable, without status migrainosus Category: Medical Plan Patient tolerated the procedure well she will call with any side effects Orders: Orders AMB Botulinum toxin Injection Today G43.719 - Chronic migraine without aura, intractable, without status migrainosus Coding Level of Care Code Est Pt Level 1 (11577) Diagnoses Chronic migraine without aura, intractable, without status migrainosus G43.719 Migraine with aura, intractable, without status migrainosus G43.119 CPT Codes Botox Injection - Botox 3: 47530 - Migraine ([id number])
--- OUTSIDE RECORDS SUMMARY | 2024-12-22 15:51 | XMS_ITS | Clinical Summary ---
Author Organization [facility] ity Address [address] [place] [address] Care Team Providers Care Bench Mechanic Name Role Phone Michael Oneill MD Primary [...] age to complete this topic Care Teams Bench Mechanic Relationship Specialty Start Date End Date Michael Oneill MD [address] [place] [id number] PCP - General Internal Medicine 08/15/17
== END 2024-12-22 13:00 | disposition home or self-care (01) ==
LOC: HO.HSMS 12:36
PROVIDERS: PCP Internal Medicine; Visit Provider Psychiatry & Neurology Neurology
DX: G43.719 Chronic migraine without aura, intractable, without status migrainosus (principal)
CPT/HCPCS: 64615

== ENCOUNTER → 2024-12-22 12:35 | Outpatient (BNVA) | payer MEDICARE, SELFPAY | PROVIDERS: PCP Internal Medicine; Visit Provider Psychiatry & Neurology Neurology | DX: G43.719 Chronic migraine without aura, intractable, without status migrainosus (principal) | CPT/HCPCS: 64615; 99211; J0585 ==